=== PATIENT | male | born 1960 | race Caucasian/White ===

== ENCOUNTER 2016-06-06 11:31 | Emergency (ER) | payer OTHER ==
[2016-06-06] MEDS ORDERED: ADENOSINE 3 MG/ML 2 ML VIAL IVP STA (11:54)
[2016-06-06] MEDS ORDERED: SODIUM CHLORIDE 0.9% 1,000 ML IV STA (11:59)
--- NOTE | 2016-06-06 12:04 | ED ---
Arrhythmia/Palpitations HPI - General Chief Complaint: Arrhythmia/Palpitations Stated Complaint: CHEST PAIN, NO Hx Time Seen by Provider: 06/06/16 11:35 Source: patient, RN notes reviewed Mode of arrival: wheelchair Limitations: no limitations - History of Present Illness Initial Comments: This is a 56-year-old male with a benign history other than a prior episode of rapid heart rate who states he is a work just prior to admission he started feeling sudden onset of a racing pounding heart he has some left arm numbness and slight shortness of breath no fevers chills sweats nausea vomiting or other symptoms. He states he had a complete workup with this last time it happened. He was told to try to bear down the next time it happened. He is asymptomatic otherwise he denies any dizziness lightheadedness blurry vision focal weakness shortness of breath nausea vomiting sweats or other symptoms. He is on no medications he does not smoke and doesn't drink alcohol takes no street drugs. No significant family history is his dad had heart lung disease. 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 MD Complaint: rapid heart beat, "heart racing", "skipped beats" - Related Data Home Medications Medication Instructions Recorded Confirmed Omeprazole [PriLOSEC] 20 mg PO DAILY PRN 10/15/13 06/06/16 Allergies Allergy/AdvReac Type Severity Reaction Status Date / Time No Known Allergies Allergy Verified 06/06/16 12:47 Review of Systems ROS Statement: Those systems with pertinent positive or pertinent negative responses have been documented in the HPI. ROS Other: All systems not noted in ROS Statement are negative. Past Medical History Past Medical History: GERD/Reflux History of Any Multi-Drug Resistant Organisms: None Reported Past Surgical History: No Surgical Hx Reported Past Psychological History: No Psychological Hx Reported Smoking Status: Never smoker Past Alcohol Use History: None Reported Past Drug Use History: None Reported General Exam - General Exam Comments Initial Comments: This is a well-developed well-nourished awake alert oriented 3 male Limitations: no limitations General appearance: alert, in no apparent distress Head exam: Present: atraumatic, normocephalic, normal inspection Eye exam: Present: normal appearance, PERRL, EOMI. Absent: scleral icterus, conjunctival injection, periorbital swelling ENT exam: Present: normal exam, mucous membranes moist Neck exam: Present: normal inspection. Absent: tenderness, meningismus, lymphadenopathy Respiratory exam: Present: normal lung sounds bilaterally. Absent: respiratory distress, wheezes, rales, rhonchi, stridor Cardiovascular Exam: Present: normal rhythm, tachycardia. Absent: systolic murmur, diastolic murmur, rubs, gallop, clicks GI/Abdominal exam: Present: soft, normal bowel sounds. Absent: distended, tenderness, guarding, rebound, rigid Extremities exam: Present: normal inspection, full ROM, normal capillary refill. Absent: tenderness, pedal edema, joint swelling, calf tenderness Back exam: Present: normal inspection Neurological exam: Present: alert, oriented X3, CN II-XII intact Psychiatric exam: Present: normal affect, normal mood Skin exam: Present: warm, dry, intact, normal color. Absent: rash Course Vital Signs 06/06/16 06/06/16 11:40 12:34 Temperature 98.2 F 97.8 F Pulse Rate 171 H 105 H Pulse Rate [ 170 H Bilateral Radial] Respiratory 20 16 Rate Blood Pressure 121/82 134/86 O2 Sat by Pulse 99 96 Oximetry - Reevaluation(s) Reevaluation #1: 06/06/16 12:06 Repeat EKG after the event occurred shows a sinus rhythm of 101. Interval 166 QRS duration 76 daily since QTC of 326/422 except for the rate is a normal- appearing EKG this was compared with EKG dated 10/15/13 which shows no change in configuration. Reevaluation #2: 06/06/16 13:38 Reevaluation demonstrates patient having no further symptoms. EKG Findings - EKG Results: EKG: interpreted by [facility] EKG shows: tachycardia (Supraventricular tachycardia with a rate of 161 and QRS of 74 daily since QTC at 272/[address]-T wave changes.) Procedures - Procedures Initial comment: The patient was noted to be in supraventricular tachycardia and did require cardioversion. Patient was positioned an IV was placed after explanation of the procedure the patient was given 6 mg of a adenosine which did convert the patient to a normal sinus rhythm. Patient did tolerate this procedure well. Medical Decision Making - Medical Decision Making Patient remains asymptomatic at did discuss the findings with him. He has no known history diabetes so is blood sugar was elevated this morning he states he has been drinking coffee today with a lot of sugar in it. He has not been having urinary frequency. He will be discharged he'll be discharged home is to follow-up with his doctor this week and did caution him also about increasing his non-caffeinated fluid intake. Return if any problems. He is in satisfactory condition for discharge this time I did recommend outpatient glucose tolerance testing however. - Lab Data Result diagrams: 06/06/16 11:50 06/06/16 11:50 Lab Results 06/06/16 06/06/16 06/06/16 Range/Units 11:50 11:50 11:50 WBC 8.4 (3.8-10.6) k/uL RBC 6.18 H (4.30-5.90) m/uL Hgb 18.7 H (13.0-17.5) gm/dL Hct 54.9 H (39.0-53.0) % MCV 88.8 (80.0-100.0) fL MCH 30.2 (25.0-35.0) pg MCHC 34.1 (31.0-37.0) g/dL RDW 12.6 (11.5-15.5) % Plt Count 327 (150-450) k/uL Neutrophils % 62 % Lymphocytes % 28 % Monocytes % 5 % Eosinophils % 1 % Basophils % 1 % Neutrophils # 5.2 (1.3-7.7) k/uL Lymphocytes # 2.4 (1.0-4.8) k/uL Monocytes # 0.5 (0-1.0) k/uL Eosinophils # 0.1 (0-0.7) k/uL Basophils # 0.1 (0-0.2) k/uL PT (9.0-12.0) sec INR (<1.1) APTT (22.0-30.0) sec Sodium 139 (137-145) mmol/L Potassium 4.2 (3.5-5.1) mmol/L Chloride 99 (98-107) mmol/L Carbon Dioxide 27 (22-30) mmol/L Anion Gap 13 mmol/L BUN 14 (9-20) mg/dL Creatinine 0.89 (0.66-1.25) mg/dL Est GFR (MDRD) Af Amer >60 (>60 ml/min/1.73 sqM) Est GFR (MDRD) Non-Af >60 (>60 ml/min/1.73 sqM) Glucose 315 H (74-99) mg/dL Calcium 10.2 (8.4-10.2) mg/dL Magnesium 1.8 (1.6-2.3) mg/dL Total Bilirubin 1.1 (0.2-1.3) mg/dL AST 26 (17-59) U/L ALT 42 (21-72) U/L Alkaline Phosphatase 100 (38-126) U/L Total Creatine Kinase 162 (55-170) U/L CK-MB (CK-2) 4.2 H* (0.0-2.4) ng/mL CK-MB (CK-2) Rel Index 2.6 Troponin I <0.012 (0.000-0.034) ng/mL Total Protein 8.5 H (6.3-8.2) g/dL Albumin 4.8 (3.5-5.0) g/dL 06/06/16 Range/Units 11:50 WBC (3.8-10.6) k/uL RBC (4.30-5.90) m/uL Hgb (13.0-17.5) gm/dL Hct (39.0-53.0) % MCV (80.0-100.0) fL MCH (25.0-35.0) pg MCHC (31.0-37.0) g/dL RDW (11.5-15.5) % Plt Count (150-450) k/uL Neutrophils % % Lymphocytes % % Monocytes % % Eosinophils % % Basophils % % Neutrophils # (1.3-7.7) k/uL Lymphocytes # (1.0-4.8) k/uL Monocytes # (0-1.0) k/uL Eosinophils # (0-0.7) k/uL Basophils # (0-0.2) k/uL PT 10.2 (9.0-12.0) sec INR 1.0 (<1.1) APTT 24.7 (22.0-30.0) sec Sodium (137-145) mmol/L Potassium (3.5-5.1) mmol/L Chloride (98-107) mmol/L Carbon Dioxide (22-30) mmol/L Anion Gap mmol/L BUN (9-20) mg/dL Creatinine (0.66-1.25) mg/dL Est GFR (MDRD) Af Amer (>60 ml/min/1.73 sqM) Est GFR (MDRD) Non-Af (>60 ml/min/1.73 sqM) Glucose (74-99) mg/dL Calcium (8.4-10.2) mg/dL Magnesium (1.6-2.3) mg/dL Total Bilirubin (0.2-1.3) mg/dL AST (17-59) U/L ALT (21-72) U/L Alkaline Phosphatase (38-126) U/L Total Creatine Kinase (55-170) U/L CK-MB (CK-2) (0.0-2.4) ng/mL CK-MB (CK-2) Rel Index Troponin I (0.000-0.034) ng/mL Total Protein (6.3-8.2) g/dL Albumin (3.5-5.0) g/dL Critical Care Time Critical Care Time: Yes Critical Care Time: 31 minutes of critical care time which includes initial presentation with history physical labs x-rays reevaluation the patient response to therapy and several other review elevation of the patient. Discussed with the patient regarding all the findings documentation the above. Disposition Clinical Impression: Supraventricular tachycardia, Hyperglycemia, Dehydration Disposition: HOME SELF-CARE Condition: Good Instructions: Supraventricular Tachycardia (ED), Hyperglycemia, Non-Diabetic ( ED), Dehydration (ED) Additional Instructions: Avoid caffeine
[2016-06-06 12:10] LABS: Basophils # (A) 0.1 k/uL (0-0.2); Basophils % (A) 1 %; CH 31.4; CHCM 35.5; Eosinophils # (A) 0.1 k/uL (0-0.7); Eosinophils % (A) 1 %; HCT 54.9 % (39.0-53.0); HGB 18.7 gm/dL (13.0-17.5); Luc # (Auto) 0.18; Luc % (Auto) 2; Lymphocytes # (A) 2.4 k/uL (1.0-4.8); Lymphocytes % (A) 28 %; MCH 30.2 pg (25.0-35.0); MCHC 34.1 g/dL (31.0-37.0); MCV 88.8 fL (80.0-100.0); Mean Platelet Volume 6.6; Monocytes # (A) 0.5 k/uL (0-1.0); Monocytes % (A) 5 %; Neutrophils # (A) 5.2 k/uL (1.3-7.7); Neutrophils % (A) 62 %; RBC 6.18 m/uL (4.30-5.90); RDW 12.6 % (11.5-15.5); WBC 8.4 k/uL (3.8-10.6); WBC (Perox) 8.36
[2016-06-06 12:22] LABS: ALT 42 U/L (21-72); AST 26 U/L (17-59); Alkaline Phosphatase 100 U/L (38-126); Anion Gap 13 mmol/L; Blood Urea Nitrogen 14 mg/dL (9-20); Calcium 10.2 mg/dL (8.4-10.2); Carbon Dioxide 27 mmol/L (22-30); Chloride 99 mmol/L (98-107); Glucose 315 mg/dL (74-99); Magnesium 1.8 mg/dL (1.6-2.3); Non-African American GFR(MDRD) >60 (>60 ml/min/1.73 sqM); Potassium 4.2 mmol/L (3.5-5.1); Sodium 139 mmol/L (137-145); Total Bilirubin 1.1 mg/dL (0.2-1.3); Total Protein 8.5 g/dL (6.3-8.2)
[2016-06-06 12:27] LABS: Partial Thromboplastin Time 24.7 sec (22.0-30.0); Prothrombin Time 10.2 sec (9.0-12.0)
--- NOTE | 2016-06-06 12:28 | XR ---
EXAMINATION TYPE: XR chest 2V DATE OF EXAM: 06/06/2016 12:23 PM COMPARISON: Chest x-ray October 15, 2013 HISTORY: Dysrhythmia. TECHNIQUE: Frontal and lateral views of the chest are obtained. FINDINGS: Underlying emphysematous change is not excluded. There is no focal air space opacity, pleu ral effusion, or pneumothorax seen. The cardiac silhouette size is within normal limits. The osseo us structures are intact. IMPRESSION: No acute cardiopulmonary process. No significant change from prior.
[2016-06-06 12:36] LABS: Creatine Kinase 162 U/L (55-170)
[2016-06-06 12:48] LABS: Troponin I <0.012 ng/mL (0.000-0.034)
[2016-06-06 12:57] LABS: Creatine Kinase MB 4.2 ng/mL (0.0-2.4)
[2016-06-06 13:42] VITALS: BP 115/82; PULSE 92; RESP 18; TEMP 97.1
== END 2016-06-06 13:53 | disposition home or self-care (01) ==
LOC: EC 11:31
DX: I47.1 Supraventricular tachycardia (principal); R73.9 Hyperglycemia, unspecified; E86.0 Dehydration
CPT/HCPCS: 99285; 92960; 96360; 96361; 36415; 93005; 80053; 82550; 82553; 83735; 84484; 85025; 85610; 85730; 71020; J0153

== ENCOUNTER → 2016-08-18 | Outpatient (CLI) | payer OTHER ==
[2016-08-18 10:26] LABS: Basophils % (A) 1 %; CH 31.5; Eosinophils # (A) 0.1 k/uL (0-0.7); Eosinophils % (A) 1 %; HDW 2.82; HGB 17.3 gm/dL (13.0-17.5); Luc # (Auto) 0.12; Luc % (Auto) 2; Lymphocytes # (A) 2.1 k/uL (1.0-4.8); Lymphocytes % (A) 29 %; MCH 30.8 pg (25.0-35.0); MCV 85.5 fL (80.0-100.0); Mean Platelet Volume 6.9; Monocytes # (A) 0.4 k/uL (0-1.0); Monocytes % (A) 5 %; Neutrophils # (A) 4.6 k/uL (1.3-7.7); Neutrophils % (A) 63 %; RBC 5.61 m/uL (4.30-5.90); RDW 13.2 % (11.5-15.5); WBC 7.4 k/uL (3.8-10.6); WBC (Perox) 6.76
[2016-08-18 10:53] LABS: Hemoglobin A1C 8.6 % (4.2-6.1)
[2016-08-18 11:34] LABS: ALT 46 U/L (21-72); AST 23 U/L (17-59); Alkaline Phosphatase 69 U/L (38-126); Anion Gap 12 mmol/L; Blood Urea Nitrogen 17 mg/dL (9-20); Calcium 9.8 mg/dL (8.4-10.2); Carbon Dioxide 28 mmol/L (22-30); Chloride 100 mmol/L (98-107); Cholesterol 201 mg/dL (<200); Glucose 196 mg/dL (74-99); HDL Cholesterol 55 mg/dL (40-60); Non-African American GFR(MDRD) >60 (>60 ml/min/1.73 sqM); Potassium 3.9 mmol/L (3.5-5.1); Sodium 140 mmol/L (137-145); Total Bilirubin 1.2 mg/dL (0.2-1.3); Total Protein 7.2 g/dL (6.3-8.2); Triglycerides 76 mg/dL (<150)
[2016-08-18 13:06] LABS: Hepatitis C Virus IgG Ab Negative (Negative); Hepatitis C Virus IgG Index 0.03
[2016-08-18 16:48] LABS: Urine Creatinine 236.1 mg/dL
== END | disposition home or self-care (01) ==
LOC: LABWHC1 09:48
PROVIDERS: ATTEND Family Medicine
DX: E11.65 Type 2 diabetes mellitus with hyperglycemia (principal); Z13.9 Encounter for screening, unspecified
CPT/HCPCS: 86803; 80061; 80053; 83036; 84443; 85025; 82043; 82570; 36415; G0103

== ENCOUNTER → 2019-03-14 | Outpatient (CLI) | payer BC ==
--- NOTE | 2019-03-14 11:31 | NM ---
EXAMINATION TYPE: NM stress cardiolite complete DATE OF EXAM: 03/14/2019 COMPARISON: NONE HISTORY: Atypical chest pain TECHNIQUE: After the intravenous administration of 9.85 mCi Tc 99m Sestamibi - Rest images obtained 45 minutes post injection. The patient exercised using a JOSE RAUL protocol and 1 minute prior to peak exercise was injected with 26.5 mCi Tc 99m Sestamibi - Stress images obtained 15 minutes post injecti on. FINDINGS: Targeted heart rate was achieved during performance of the study. Review of stress and rest SPECT cornelia ges demonstrates no reversible perfusion abnormality. Fixed defect in the inferior septal wall is at tributable to attenuation artifact from adjacent bowel on raw data images Gated analysis shows normal wall motion with an estimated left ventricular ejection fraction of 65 %. TID is calculated within n ormal limits at 0.84. IMPRESSION: No scintigraphic evidence for reversible ischemia
--- NOTE | 2019-03-14 11:52 | P.STRESS ---
- Stress Test Note Stress Test Results/Findings: Exam Performed: NM stress cardiolite complete Exam Date: 03/14/19 Reason for Exam: CP Height: 6 ft Weight: 174 kg Protocol: JOSE RAUL Stage: 3 Duration of Exercise: 7:15 Resting Heart Rate: 72 Resting Blood Pressure: 132/85 Maximum Achieved Heart Rate: 141 Maximum Achieved Blood Pressure: 218/115 85% PMHR: 138 100% PMHR: 162 METS: 87 Technologist Comment: Stress Test Results/Findings: This is a 58-year-old gentleman with history of hypertension, diabetes, hypercholesterolemia, family history, being evaluated for symptoms of chest pain or shortness of breath and also palpitations. Stress data: Baseline EKG showed sinus rhythm with normal SC interval and QRS duration. Blood pressure at rest is 132/85 with pulse rate of 72. Patient walked on the Jose Raul protocol for 7 minutes and 15 seconds achieving a maximal heart rate of 141 with a blood pressure of 10. Overall 116. EKGs taken during and after exercise did not reveal any significant changes from the baseline. Final impression: #1. Negative stress test #2. Occasional PVCs #3. Report on the nuclear images to be given by the radiologist
--- NOTE | 2019-03-15 12:59 | EST ---
Stress Test Results/Findings: Exam Performed: NM stress cardiolite complete Exam Date: 03/14/19 Reason for Exam: CP Height: 6 ft Weight: 174 kg Protocol: JOSE RAUL Stage: 3 Duration of Exercise: 7:15 Resting Heart Rate: 72 Resting Blood Pressure: 132/85 Maximum Achieved Heart Rate: 141 Maximum Achieved Blood Pressure: 218/115 85% PMHR: 138 100% PMHR: 162 METS: 87 Technologist Comment: Stress Test Results/Findings: This is a 58-year-old gentleman with history of hypertension, diabetes, hypercholesterolemia, family history, being evaluated for symptoms of chest pain or shortness of breath and also palpitations. Stress data: Baseline EKG showed sinus rhythm with normal CO interval and QRS duration. Blood pressure at rest is 132/85 with pulse rate of 72. Patient walked on the Jose Raul protocol for 7 minutes and 15 seconds achieving a maximal heart rate of 141 with a blood pressure of 10. Overall 116. EKGs taken during and after exercise did not reveal any significant changes from the baseline. Final impression: #1. Negative stress test #2. Occasional PVCs #3. Report on the nuclear images to be given by the radiologist CALIXTO
== END | disposition home or self-care (01) ==
LOC: RADNMMAIN 08:15
PROVIDERS: ATTEND Family Medicine
DX: R07.89 Other chest pain (principal)
CPT/HCPCS: 93017; 78452; A9500

== ENCOUNTER 2020-01-07 14:43 | Emergency (ER) | payer BC, OTHER ==
[2020-01-07 14:52] VITALS: BP 173/99; PULSE 75; RESP 16; TEMP 98.8
--- NOTE | 2020-01-07 15:51 | ED ---
Upper Extremity HPI - General Chief Complaint: Extremity Injury, Upper Stated Complaint: Rt thumb injury Time Seen by Provider: 01/07/20 14:54 Source: patient Mode of arrival: ambulatory Limitations: no limitations - History of Present Illness Initial Comments: 59-year-old male patient presents to the emergency department today for evaluation of right thumb injury. Patient states he is at work one [employer] when he tried to catch a he jammed his thumb on the table. Patient states he has significant pain with any type of movement to the thumb. States the pain is radiating down into his wrist. Denies any numbness or tingling. Denies previous injury to this extremity. Denies any other injuries. Has not taken any pain medication. Patient denies any headache, neck pain, back pain, chest pain, shortness of breath, dizziness, weakness, abdominal pain, nausea, vomiting, or difficulties with bowel movements or urination. - Related Data Home Medications Medication Instructions Recorded Confirmed Omeprazole [PriLOSEC] 20 mg PO DAILY PRN 10/15/13 06/06/16 Allergies Allergy/AdvReac Type Severity Reaction Status Date / Time No Known Allergies Allergy Verified 01/07/20 14:52 Review of Systems ROS Statement: Those systems with pertinent positive or pertinent negative responses have been documented in the HPI. ROS Other: All systems not noted in ROS Statement are negative. Past Medical History Past Medical History: GERD/Reflux History of Any Multi-Drug Resistant Organisms: None Reported Past Surgical History: No Surgical Hx Reported Past Psychological History: No Psychological Hx Reported Smoking Status: Never smoker Past Alcohol Use History: None Reported Past Drug Use History: None Reported General Exam Limitations: no limitations General appearance: alert, in no apparent distress, other (This is a well- developed, well-nourished adult male patient in no acute distress. Vital signs upon presentation are temperature 98.8F, pulse 75, respirations 16, blood pressure 173/99, pulse ox 98% on room air.) Respiratory exam: Present: normal lung sounds bilaterally. Absent: respiratory distress, wheezes, rales, rhonchi, stridor Cardiovascular Exam: Present: regular rate, normal rhythm, normal heart sounds. Absent: systolic murmur, diastolic murmur, rubs, gallop, clicks Extremities exam: Present: normal inspection, full ROM, normal capillary refill, other (tenderness over the base of the thumb. Skin is pink, warm, dry. Cap refills less than 3 seconds. Radial pulses 2+ and equal bilaterally. There is no anatomical snuffbox tenderness.). Absent: pedal edema, joint swelling, calf tenderness Neurological exam: Present: alert, oriented X3, CN II-XII intact Psychiatric exam: Present: normal affect, normal mood Skin exam: Present: warm, dry, intact, normal color. Absent: rash Course Vital Signs 01/07/20 14:49 Temperature 98.8 F Pulse Rate 75 Respiratory 16 Rate Blood Pressure 173/99 O2 Sat by Pulse 98 Oximetry Medical Decision Making - Medical Decision Making 59-year-old male patient presented to the emergency department today for evaluation of injury to the thumb on the right hand. Physical examination did reveal soft tissue swelling noted over the base of the right thumb. Neurovascular status was intact. X-ray showed significant degenerative changes to the hand and wrist but no acute fractures. Patient was placed in an Carlos wrap. He is educated regarding rest, ice, elevation. He is instructed to follow-up with his primary care physician for recheck in 1-2 days. Return parameters were discussed in detail. He verbalizes understanding and agrees with this plan. - Radiology Data Radiology results: report reviewed, image reviewed X-ray of the right wrist and right hand are obtained. Report was reviewed in its intake today. Impression by Dr. Murphy shows moderate degenerative change the basal joint of the thumb and the Triscaphe joint. Severe degenerative change at the mid carpal compartment centered at the take joint. Type II and a bone with evidence of hematoma lunate impingement. At least mild degenerative change at the first MCP and IP joints. There is 2 mm chronically fragmented spur are loose body within the dorsal aspect of the first MCP joint. Additional moderate degenerative change of the second MCP joint. Disposition Clinical Impression: Thumb sprain Disposition: HOME SELF-CARE Condition: Good Instructions (If sedation given, give patient instructions): Finger Sprain (ED) Additional Instructions: Rest, ice, elevate the right hand. Use carlos wrap for comfort and support. Use tylenol and motrin for pain control. Follow up with orthopedics for further evaluation as symptoms do not improve in the next 1-2 days. Return to the emergency department for new, worsening, or concerning symptoms. Is patient prescribed a controlled substance at d/c from ED?: No Referrals: Ranjan Teran MD [Primary Care Provider] - 1-2 days Jama Coe MD [STAFF PHYSICIAN] - 1-2 days Time of Disposition: 16:17
--- NOTE | 2020-01-07 16:08 | XR ---
EXAMINATION TYPE: XR wrist complete 4 views RT, XR hand complete 3 views RT DATE OF EXAM: 01/07/2020 COMPARISON: NONE HISTORY: 59-year-old male with right thumb pain after injury FINDINGS: Wrist: Neutral ulnar variance. Radiocarpal and distal radioulnar joints appear intact. Moderate degenerative change at the first MCP and triscaphe joints with joint space narrowing, marginal spurring, and some subchondral signal change. Of note, there is also severe degenerative change at the lunocapitate sravan nt and a type II hamate with joint space narrowing and sclerosis with the lunate. No acute fracture o r dislocation seen. Hand: Mild degenerative change at the first MCP and IP joints. Corticated 2 mm bone density along the dorsa l aspect of the first MCP joint suggesting a fragmented spur or loose body. Moderate degenerative joint space narrowing with subchondral cystic change at the second MCP joint. N o acute fracture or dislocation seen. IMPRESSION: Wrist: 1. Moderate degenerative change at the basal joint of the thumb and the triscaphe joint. 2. Severe degenerative change at the midcarpal compartment centered at the lunocapitate joint. 3. 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 Hand: 4. At least mild degenerative change at the first MCP and IP joints. There is a 2 mm chronically frag mented spur or loose body within the dorsal aspect of the first MCP joint. 5. Additional moderate degenerative change of the second MCP joint.
== END 2020-01-07 16:57 | disposition home or self-care (01) ==
LOC: EC 14:43
DX: S63.601A Unspecified sprain of right thumb, initial encounter (principal); K21.9 Gastro-esophageal reflux disease without esophagitis; M19.031 Primary osteoarthritis, right wrist; M19.041 Primary osteoarthritis, right hand; W23.1XXA Caught, crushed, jammed, or pinched between stationary objects, initial encounter; Y92.69 Other specified industrial and construction area as the place of occurrence of the external cause; Y99.0 Civilian activity done for income or pay
CPT/HCPCS: 99283

== ENCOUNTER 2020-08-04 11:25 | Emergency (ER) | payer BC ==
[2020-08-04 11:38] LABS: Glucose,Whole Blood 255 mg/dL (75-99)
[2020-08-04] MEDS ORDERED: SODIUM CHLORIDE 0.9% 1,000 ML IV ONE (12:01)
--- NOTE | 2020-08-04 12:05 | ED ---
General Adult HPI - General Chief complaint: Recheck/Abnormal Lab/Rx Stated complaint: diabetic med reaction Time Seen by Provider: 08/04/20 11:35 Source: patient, RN notes reviewed Mode of arrival: ambulatory Limitations: no limitations - History of Present Illness Initial comments: 60-year-old male presents emergency Department with chief complaint of palpitations. Patient states he's been having issues with his blood sugar in which he has been placed on 2 new medications. Patient states he occasionally experience of palpitations with no chest pain he states that he'll just suddenly feels some heart racing that it goes away. Denies feeling short of breath no headache no dizziness no focal weakness no abdominal complaints. He does have urinary frequency but states that he always has this once blood sugar is elevated. Patient also states she was recently placed on her blood pressure medication which she has not had that filled. Patient denies fevers chills no cough or URI symptoms. - Related Data Home Medications Medication Instructions Recorded Confirmed Empagliflozin [Jardiance] 25 mg PO DAILY 08/04/20 08/04/20 Semaglutide [Rybelsus] 14 mg PO DAILY 08/04/20 08/04/20 Allergies Allergy/AdvReac Type Severity Reaction Status Date / Time No Known Allergies Allergy Verified 08/04/20 13:05 Review of Systems ROS Statement: Those systems with pertinent positive or pertinent negative responses have been documented in the HPI. ROS Other: All systems not noted in ROS Statement are negative. Past Medical History Past Medical History: Diabetes Mellitus, GERD/Reflux History of Any Multi-Drug Resistant Organisms: None Reported Past Surgical History: No Surgical Hx Reported Past Psychological History: No Psychological Hx Reported Smoking Status: Never smoker Past Alcohol Use History: None Reported Past Drug Use History: None Reported General Exam Limitations: no limitations General appearance: alert, in no apparent distress Head exam: Present: atraumatic, normocephalic, normal inspection Neck exam: Present: normal inspection, full ROM. Absent: tenderness, meningismus, lymphadenopathy Respiratory exam: Present: normal lung sounds bilaterally. Absent: respiratory distress, wheezes, rales, rhonchi, stridor Cardiovascular Exam: Present: regular rate, normal rhythm, normal heart sounds. Absent: systolic murmur, diastolic murmur, rubs, gallop, clicks GI/Abdominal exam: Present: soft, normal bowel sounds. Absent: distended, tenderness, guarding, rebound, rigid Extremities exam: Absent: pedal edema Neurological exam: Present: alert, CN II-XII intact Skin exam: Present: warm, dry, intact, normal color. Absent: rash Course Vital Signs 08/04/20 11:31 Temperature 97.9 F Pulse Rate 76 Respiratory 16 Rate Blood Pressure 170/102 O2 Sat by Pulse 98 Oximetry EKG Findings - EKG Comments: EKG Findings:: EKG performed at 12:17 sinus rhythm rate of 68 pr 160 qrs 80 qt/qtc 404/404 Medical Decision Making - Medical Decision Making 6-year-old presented for palpitations. Patient is asymptomatic at this time. Patient in mild hyperglycemia he was well hydrated, is on medications. Patient has mild hypertension and which she has prescription waiting for him at the pharmacy. Patient discharged with close follow-up return parameters were disc ussed. Patient has no shortness of breath. - Lab Data Result diagrams: 08/04/20 12:10 08/04/20 12:10 Lab Results 08/04/20 08/04/20 08/04/20 Range/Units 11:33 12:10 12:10 WBC 5.4 (3.8-10.6) k/uL RBC 5.61 (4.30-5.90) m/uL Hgb 17.4 (13.0-17.5) gm/dL Hct 49.9 (39.0-53.0) % MCV 88.9 (80.0-100.0) fL MCH 31.1 (25.0-35.0) pg MCHC 34.9 (31.0-37.0) g/dL RDW 12.2 (11.5-15.5) % Plt Count 276 (150-450) k/uL MPV 6.9 Neutrophils % 65 % Lymphocytes % 26 % Monocytes % 4 % Eosinophils % 3 % Basophils % 1 % Neutrophils # 3.5 (1.3-7.7) k/uL Lymphocytes # 1.4 (1.0-4.8) k/uL Monocytes # 0.2 (0-1.0) k/uL Eosinophils # 0.2 (0-0.7) k/uL Basophils # 0.0 (0-0.2) k/uL PT 10.1 (9.0-12.0) sec INR 0.9 (<1.2) APTT 22.2 (22.0-30.0) sec Sodium (137-145) mmol/L Potassium (3.5-5.1) mmol/L Chloride (98-107) mmol/L Carbon Dioxide (22-30) mmol/L Anion Gap mmol/L BUN (9-20) mg/dL Creatinine (0.66-1.25) mg/dL Est GFR (CKD-EPI)AfAm (>60 ml/min/1.73 sqM) Est GFR (CKD-EPI)NonAf (>60 ml/min/1.73 sqM) Glucose (74-99) mg/dL POC Glucose (mg/dL) 255 H (75-99) mg/dL POC Glu Auto Mechanics Teacher ID Maday Cates Calcium (8.4-10.2) mg/dL Magnesium (1.6-2.3) mg/dL Total Bilirubin (0.2-1.3) mg/dL AST (17-59) U/L ALT (4-49) U/L Alkaline Phosphatase (38-126) U/L Troponin I (0.000-0.034) ng/mL Total Protein (6.3-8.2) g/dL Albumin (3.5-5.0) g/dL 08/04/20 08/04/20 Range/Units 12:10 12:10 WBC (3.8-10.6) k/uL RBC (4.30-5.90) m/uL Hgb (13.0-17.5) gm/dL Hct (39.0-53.0) % MCV (80.0-100.0) fL MCH (25.0-35.0) pg MCHC (31.0-37.0) g/dL RDW (11.5-15.5) % Plt Count (150-450) k/uL MPV Neutrophils % % Lymphocytes % % Monocytes % % Eosinophils % % Basophils % % Neutrophils # (1.3-7.7) k/uL Lymphocytes # (1.0-4.8) k/uL Monocytes # (0-1.0) k/uL Eosinophils # (0-0.7) k/uL Basophils # (0-0.2) k/uL PT (9.0-12.0) sec INR (<1.2) APTT (22.0-30.0) sec Sodium 140 (137-145) mmol/L Potassium 4.1 (3.5-5.1) mmol/L Chloride 107 (98-107) mmol/L Carbon Dioxide 25 (22-30) mmol/L Anion Gap 8 mmol/L BUN 14 (9-20) mg/dL Creatinine 0.57 L (0.66-1.25) mg/dL Est GFR (CKD-EPI)AfAm >90 (>60 ml/min/1.73 sqM) Est GFR (CKD-EPI)NonAf >90 (>60 ml/min/1.73 sqM) Glucose 292 H (74-99) mg/dL POC Glucose (mg/dL) (75-99) mg/dL POC Glu Auto Mechanics Teacher ID Calcium 9.4 (8.4-10.2) mg/dL Magnesium 1.9 (1.6-2.3) mg/dL Total Bilirubin 0.7 (0.2-1.3) mg/dL AST 25 (17-59) U/L ALT 28 (4-49) U/L Alkaline Phosphatase 84 (38-126) U/L Troponin I <0.012 (0.000-0.034) ng/mL Total Protein 6.8 (6.3-8.2) g/dL Albumin 4.2 (3.5-5.0) g/dL Disposition Clinical Impression: Hyperglycemia, Palpitations Disposition: HOME SELF-CARE Condition: Stable Instructions (If sedation given, give patient instructions): Heart Palpitations (ED) Additional Instructions: Please return to the Emergency Department if symptoms worsen or any other concerns. Is patient prescribed a controlled substance at d/c from ED?: No Referrals: Ranjan Teran MD [Primary Care Provider] - 1-2 days Time of Disposition: 13:20
[2020-08-04 12:18] LABS: Basophils % (A) 1 %; Eosinophils # (A) 0.2 k/uL (0-0.7); Eosinophils % (A) 3 %; HCT 49.9 % (39.0-53.0); HGB 17.4 gm/dL (13.0-17.5); Lymphocytes # (A) 1.4 k/uL (1.0-4.8); Lymphocytes % (A) 26 %; MCH 31.1 pg (25.0-35.0); MCHC 34.9 g/dL (31.0-37.0); MCV 88.9 fL (80.0-100.0); Mean Platelet Volume 6.9; Monocytes # (A) 0.2 k/uL (0-1.0); Monocytes % (A) 4 %; Neutrophils # (A) 3.5 k/uL (1.3-7.7); Neutrophils % (A) 65 %; Platelet Count 276 k/uL (150-450); RBC 5.61 m/uL (4.30-5.90); RDW 12.2 % (11.5-15.5); WBC 5.4 k/uL (3.8-10.6)
[2020-08-04 12:29] LABS: INR 0.9 (<1.2); Partial Thromboplastin Time 22.2 sec (22.0-30.0); Prothrombin Time 10.1 sec (9.0-12.0)
[2020-08-04 12:31] LABS: ALT 28 U/L (4-49); AST 25 U/L (17-59); African American GFR (CKD) >90 (>60 ml/min/1.73 sqM); Albumin 4.2 g/dL (3.5-5.0); Alkaline Phosphatase 84 U/L (38-126); Anion Gap 8 mmol/L; Blood Urea Nitrogen 14 mg/dL (9-20); Calcium 9.4 mg/dL (8.4-10.2); Carbon Dioxide 25 mmol/L (22-30); Chloride 107 mmol/L (98-107); Glucose 292 mg/dL (74-99); Magnesium 1.9 mg/dL (1.6-2.3); Non-African American GFR(CKD) >90 (>60 ml/min/1.73 sqM); Potassium 4.1 mmol/L (3.5-5.1); Sodium 140 mmol/L (137-145); Total Bilirubin 0.7 mg/dL (0.2-1.3); Total Protein 6.8 g/dL (6.3-8.2)
--- NOTE | 2020-08-04 13:12 | XR ---
EXAMINATION TYPE: XR chest 2V DATE OF EXAM: 08/04/2020 COMPARISON: 06/06/2016 HISTORY: Dysrhythmia TECHNIQUE: Frontal and lateral views of the chest are obtained. FINDINGS: There is no focal air space opacity, pleural effusion, or pneumothorax seen. The cardiac silhouette size is within normal limits. The osseous structures are intact. IMPRESSION: No acute cardiopulmonary process.
[2020-08-04 13:46] VITALS: PULSE 61
[2020-08-04 13:48] VITALS: BP 126/85; RESP 16; TEMP 98.1
== END 2020-08-04 13:35 | disposition home or self-care (01) ==
LOC: EC 11:25
DX: E11.65 Type 2 diabetes mellitus with hyperglycemia (principal); R00.2 Palpitations; I10 Essential (primary) hypertension; Z79.4 Long term (current) use of insulin
CPT/HCPCS: 36415; 71046; 80053; 83735; 84484; 85025; 85610; 85730; 93005; 96360; 99285

== ENCOUNTER → 2020-08-13 | Outpatient (CLI) | payer BC ==
--- NOTE | 2020-08-17 05:00 | ECHOF ---
Referral Reason:R00.2 palpitations MEASUREMENTS -------- HEIGHT: 182.9 cm WEIGHT: 80.7 kg BP: 149/90 RVIDd: 2.4 cm (< 3.3) IVSd: 1.1 cm (0.6 - 1.1) LVIDd: 4.0 cm (3.9 - 5.3) LVPWd: 1.0 cm (0.6 - 1.1) IVSs: 1.7 cm LVIDs: 2.5 cm LVPWs: 1.3 cm LA Diam: 2.8 cm (2.7 - 3.8) LAESV Index (A-L): 20.03 ml/m Ao Diam: 3.1 cm (2.0 - 3.7) AV Cusp: 2.3 cm (1.5 - 2.6) MV EF SLOPE: 139 mm/s (70 - 150) EPSS: 1.8 cm MV E Franck: 0.90 m/s MV DecT: 209 ms MV A Franck: 1.04 m/s MV E/A Ratio: 0.86 RAP: 5.00 mmHg RVSP: 27.49 mmHg FINDINGS -------- Sinus rhythm. This was a technically adequate study. The left ventricular size is normal. There is borderline concentric left ventricular hypertrophy. Overall left ventricular systolic function is normal with, an EF between 55 - 60 %. The diastolic filling pattern is normal for the age of the patient 9.96. The right ventricle is normal in size. Normal LA size by volume 22+/-6 ml/m2. The right atrial size is normal. Interatrial and interventricular septum intact. The aortic valve is trileaflet, and appears structurally normal. No aortic stenosis or regurgitation. The mitral valve is normal. There is trace to mild mitral regurgitation. The tricuspid valve appears structurally normal. Mild tricuspid regurgitation present. Right vent ricular systolic pressure is normal at < 35 mmHg. The pulmonic valve was not well visualized. There is no pulmonic regurgitation present. The aortic root size is normal. Normal inferior vena cava with normal inspiratory collapse consistent with estimated right atrial pre ssure of 5 mmHg. There is no pericardial effusion. CONCLUSIONS -------- 1. There is borderline concentric left ventricular hypertrophy. 2. Overall left ventricular systolic function is normal with, an EF between 55 - 60 %. 3. Normal LA size by volume 22+/-6 ml/m2. 4. The aortic valve is trileaflet, and appears structurally normal. No aortic stenosis or regurgitati on. 5. There is trace to mild mitral regurgitation. 6. Mild tricuspid regurgitation present. 7. There is no pericardial effusion. BLOOD TESTER FOWL: Kimmy Albright RDCS
== END | disposition home or self-care (01) ==
LOC: RADECHMAIN 14:46
PROVIDERS: ATTEND Family Medicine
DX: I08.1 Rheumatic disorders of both mitral and tricuspid valves (principal)
CPT/HCPCS: 93306

== ENCOUNTER → 2020-09-24 | Outpatient (CLI) | payer OTHER ==
--- NOTE | 2020-09-24 11:24 | XR ---
EXAMINATION TYPE: XR knee complete RT DATE OF EXAM: 09/24/2020 CLINICAL HISTORY: Trip and fall injury with pain. TECHNIQUE: Three views of the right knee are obtained. COMPARISON: None. FINDINGS: There is no acute fracture/dislocation evident in right knee. Mild to moderate tricompartm ent joint space loss. Increased density suprapatellar bursa consistent with small joint effusion. IMPRESSION: There is no acute fracture or dislocation in the right knee.
== END | disposition home or self-care (01) ==
LOC: RADXRMAIN 11:06
PROVIDERS: ATTEND Emergency Medicine
DX: M25.561 Pain in right knee (principal); W19.XXXA Unspecified fall, initial encounter

== ENCOUNTER 2022-11-12 16:43 | Observation (INO) | payer BC, OTHER ==
[2022-11-12] MEDS ORDERED: KETOROLAC 15 MG/ML 1 ML VIAL IM STA (17:06)
[2022-11-12] MEDS ORDERED: LIDOCAINE 5% PATCH TOPICAL STA (17:07)
--- NOTE | 2022-11-12 17:16 | ED ---
Back Pain HPI - General Source: patient Limitations: no limitations <Jyoti Mcdaniel - Last Filed: 11/12/22 17:49> - General Source: patient, RN notes reviewed Limitations: no limitations <Damion Mckenna - Last Filed: 11/12/22 19:47> - General Chief Complaint: Back Pain/Injury Stated Complaint: L shoulder injury Time Seen by Provider: 11/12/22 16:59 - History of Present Illness Initial Comments: Patient is a pleasant 60-year-old male presenting to the emergency department back pain. Onset of symptoms was 3 or 4 days ago while at work. Patient was lifting a 23 pound rotor. Patient states he has had intermittent back discomfort since that time. Discomfort is somewhat positional. Patient states it does improve with rest. Patient states when discomfort gets bad he does have some discomfort in his chest as well. Discomfort feels like a dull/ache. Patient has had some nausea and has vomited. Currently no chest discomfort. Discomfort in the back is currently 7/10. (Damion Mckenna) - Related Data Home Medications Medication Instructions Recorded Confirmed Empagliflozin [Jardiance] 25 mg PO DAILY 08/04/20 08/04/20 Semaglutide [Rybelsus] 14 mg PO DAILY 08/04/20 08/04/20 Previous Rx's Medication Instructions Recorded Lidocaine 5% Patch [Lidoderm 5% 1 patch TOPICAL DAILY PRN #7 patch 11/12/22 Patch] Allergies Allergy/AdvReac Type Severity Reaction Status Date / Time No Known Allergies Allergy Verified 11/12/22 19:46 Review of Systems ROS Other: All systems not noted in ROS Statement are negative. <Jyoti Mcdaniel - Last Filed: 11/12/22 17:49> ROS Other: All systems not noted in ROS Statement are negative. Constitutional: Denies: fever Eyes: Denies: eye pain ENT: Denies: ear pain Respiratory: Denies: dyspnea Cardiovascular: Reports: as per HPI, chest pain Musculoskeletal: Reports: as per HPI, back pain <Damion Mckenna - Last Filed: 11/12/22 19:47> ROS Statement: Those systems with pertinent positive or pertinent negative responses have been documented in the HPI. Past Medical History Past Medical History: Diabetes Mellitus, GERD/Reflux, Hypertension History of Any Multi-Drug Resistant Organisms: None Reported Past Surgical History: No Surgical Hx Reported Past Psychological History: No Psychological Hx Reported Smoking Status: Never smoker Past Alcohol Use History: None Reported Past Drug Use History: None Reported <Jyoti Mcdaniel - Last Filed: 11/12/22 17:49> General Exam Limitations: no limitations <Jyoti Mcdaniel - Last Filed: 11/12/22 17:49> Limitations: no limitations General appearance: alert, in no apparent distress Head exam: Present: normocephalic Eye exam: Present: normal appearance Neck exam: Present: normal inspection Respiratory exam: Present: normal lung sounds bilaterally. Absent: chest wall tenderness Cardiovascular Exam: Present: regular rate, normal rhythm Expanded Peripheral pulses: 2+: Radial (R), Radial (L), Dorsalis Pedis (R), Dorsalis Pedis (L) GI/Abdominal exam: Present: soft. Absent: tenderness Extremities exam: Present: normal inspection. Absent: pedal edema, calf tenderness Neurological exam: Present: alert Psychiatric exam: Present: normal affect, normal mood Skin exam: Present: normal color <Damion Mckenna - Last Filed: 11/12/22 19:47> Course <Damion Mckenna - Last Filed: 11/12/22 19:47> Vital Signs 11/12/22 11/12/22 16:46 18:20 Temperature 98 F Pulse Rate 100 95 Respiratory 20 18 Rate Blood Pressure 142/66 135/117 O2 Sat by Pulse 96 98 Oximetry - Reevaluation(s) Reevaluation #1: 11/12/22 17:53 Case is discussed with Dr. Schmidt and he is reviewing EKG 11/12/22 18:27 Case was discussed with Dr. Schmidt several times. He does recommend aspirin, nitroglycerin, and Lipitor. No heparin at this time. He does want computed tomography scan. (Damion Mckenna) Medical Decision Making - Lab Data Result diagrams: 11/12/22 17:56 11/12/22 17:56 <Damion Mckenna - Last Filed: 11/12/22 19:47> - Medical Decision Making Was pt. sent in by a medical professional or institution (, PA, SUGAR REFINERY SUPERVISOR, urgent care, hospital, or skilled nursing...) When possible be specific @ -No Did you speak to anyone other than the patient for history (EMS, parent, family, police, friend...)? What history was obtained from this source @ -No Did you review nursing and triage notes (agree or disagree)? Why? @ -I reviewed and agree with nursing and triage notes Were old charts reviewed (outside hosp., previous admission, EMS record, old EKG, old radiological studies, urgent care reports/EKG's, skilled nursing records)? Report findings @ -Previous EKGs were reviewed and were not similar to EKG done today. Differential Diagnosis (chest pain, altered mental status, abdominal pain women, abdominal pain men, vaginal bleeding, weakness, fever, dyspnea, syncope, headache, dizziness, GI bleed, back pain, seizure, CVA, palpatations, mental he alth, musculoskeletal)? @ -Differential Chest Pain: Stable Angina, Unstable Angina, STEMI, NSTEMI Aortic Dissection, Pneumothorax, Musculoskeletal, Esophageal Spasm GERD, Cholecystitis, Pancreatitis, Zoster, this is not meant to be an all-inclusive list. EKG interpreted by me (3pts min.). @ -As above X-rays interpreted by me (1pt min.). @ -Chest x-ray shows no acute process CT interpreted by me (1pt min.). @ -Report reviewed U/S interpreted by me (1pt. min.). @ -None done What testing was considered but not performed or refused? (CT, X-rays, U/S, labs)? Why? @ -None What meds were considered but not given or refused? Why? @ -None Did you discuss the management of the patient with other professionals (prof alka i.e. , PA, SUGAR REFINERY SUPERVISOR, lab, RT, psych nurse, clinical social worker, transport tech, teacher, first officer, outpatient case manager)? Give summary @ -Case discussed with cardiology, Dr. Gates and several times, see above. Case also discussed with sound physician, Dr. Sprague who will admit covering Dr. Carver Was smoking cessation discussed for >3mins.? @ -No Was critical care preformed (if so, how long)? @ -33 minutes critical care time Were there social determinants of health that impacted care today? How? (Homelessness, low income, unemployed, alcoholism, drug addiction, transportation, low edu. Level, literacy, decrease access to med. care, half-way, rehab)? @ -No Was there de-escalation of care discussed even if they declined (Discuss DNR or withdrawal of care, Hospice)? DNR status @ -No What co-morbidities impacted this encounter? (DM, HTN, Smoking, COPD, CAD, Cancer, CVA, ARF, Chemo, Hep., AIDS, mental health diagnosis, sleep apnea, morbid obesity)? @ -None Was patient admitted / discharged? Hospital course, mention meds given and route, prescriptions, significant lab abnormalities, going to OR and other pertinent info. @ -Patient reevaluated multiple times. Discomfort has improved to 3/10 and just is in the back. Patient will be admitted for repeat troponins and cardiac evaluation. Patient may need heart catheterization at some point to be d etermined by cardiology. Patient is updated on results and plan and concerns. Admission orders written. Undiagnosed new problem with uncertain prognosis? @ -No Drug Therapy requiring intensive monitoring for toxicity (Heparin, Nitro, Insulin, Cardizem)? @ -No Were any procedures done? @ -No Diagnosis/symptom? @ -Angina, EKG changes Acute, or Chronic, or Acute on Chronic? @ -Acute Uncomplicated (without systemic symptoms) or Complicated (systemic symptoms)? @ -default Side effects of treatment? @ -No Exacerbation, Progression, or Severe Exacerbation? @ -No Poses a threat to life or bodily function? How? (Chest pain, [place], [place], pneumonia, PE, COPD, DKA, ARF, appy, cholecystitis, CVA, Diverticulitis, Homicidal, Suicidal, threat to staff... and all critical care pts) @ -Threat to cardiac function (Damion Mckenna) - Lab Data Lab Results 11/12/22 11/12/22 11/12/22 Range/Units 17:56 17:56 17:56 WBC 8.5 (3.8-10.6) k/uL RBC 5.76 (4.30-5.90) m/uL Hgb 17.9 H (13.0-17.5) gm/dL Hct 51.8 (39.0-53.0) % MCV 89.8 (80.0-100.0) fL MCH 31.0 (25.0-35.0) pg MCHC 34.5 (31.0-37.0) g/dL RDW 12.3 (11.5-15.5) % Plt Count 447 (150-450) k/uL MPV 7.7 Neutrophils % 59 % Lymphocytes % 31 % Monocytes % 5 % Eosinophils % 3 % Basophils % 0 % Neutrophils # 5.1 (1.3-7.7) k/uL Lymphocytes # 2.6 (1.0-4.8) k/uL Monocytes # 0.5 (0-1.0) k/uL Eosinophils # 0.2 (0-0.7) k/uL Basophils # 0.0 (0-0.2) k/uL PT 9.9 (9.0-12.0) sec INR 0.9 (<1.2) APTT 23.1 (22.0-30.0) sec D-Dimer 0.35 (<0.60) mg/L FEU Sodium 136 L (137-145) mmol/L Potassium 4.5 (3.5-5.1) mmol/L Chloride 97 L (98-107) mmol/L Carbon Dioxide 28 (22-30) mmol/L Anion Gap 11 mmol/L BUN 24 H (9-20) mg/dL Creatinine 0.75 (0.66-1.25) mg/dL Est GFR (CKD-EPI)AfAm >90 (>60 ml/min/1.73 sqM) Est GFR (CKD-EPI)NonAf >90 (>60 ml/min/1.73 sqM) Glucose 333 H (74-99) mg/dL Calcium 9.9 (8.4-10.2) mg/dL Magnesium 1.3 L (1.6-2.3) mg/dL Total Bilirubin 0.8 (0.2-1.3) mg/dL AST 29 (17-59) U/L ALT 31 (4-49) U/L Alkaline Phosphatase 79 (38-126) U/L Troponin I (0.000-0.034) ng/mL Total Protein 7.5 (6.3-8.2) g/dL Albumin 4.4 (3.5-5.0) g/dL 11/12/22 Range/Units 17:56 WBC (3.8-10.6) k/uL RBC (4.30-5.90) m/uL Hgb (13.0-17.5) gm/dL Hct (39.0-53.0) % MCV (80.0-100.0) fL MCH (25.0-35.0) pg MCHC (31.0-37.0) g/dL RDW (11.5-15.5) % Plt Count (150-450) k/uL MPV Neutrophils % % Lymphocytes % % Monocytes % % Eosinophils % % Basophils % % Neutrophils # (1.3-7.7) k/uL Lymphocytes # (1.0-4.8) k/uL Monocytes # (0-1.0) k/uL Eosinophils # (0-0.7) k/uL Basophils # (0-0.2) k/uL PT (9.0-12.0) sec INR (<1.2) APTT (22.0-30.0) sec D-Dimer (<0.60) mg/L FEU Sodium (137-145) mmol/L Potassium (3.5-5.1) mmol/L Chloride (98-107) mmol/L Carbon Dioxide (22-30) mmol/L Anion Gap mmol/L BUN (9-20) mg/dL Creatinine (0.66-1.25) mg/dL Est GFR (CKD-EPI)AfAm (>60 ml/min/1.73 sqM) Est GFR (CKD-EPI)NonAf (>60 ml/min/1.73 sqM) Glucose (74-99) mg/dL Calcium (8.4-10.2) mg/dL Magnesium (1.6-2.3) mg/dL Total Bilirubin (0.2-1.3) mg/dL AST (17-59) U/L ALT (4-49) U/L Alkaline Phosphatase (38-126) U/L Troponin I <0.012 (0.000-0.034) ng/mL Total Protein (6.3-8.2) g/dL Albumin (3.5-5.0) g/dL Critical Care Time Critical Care Time: Yes Total Critical Care Time: 33 <Damion Mckenna - Last Filed: 11/12/22 19:47> Disposition Is patient prescribed a controlled substance at d/c from ED?: No <Jyoti Mcdaniel - Last Filed: 11/12/22 17:49> Is patient prescribed a controlled substance at d/c from ED?: No Time of Disposition: 18:26 <Damion Mckenna - Last Filed: 11/12/22 19:47> Clinical Impression: Angina pectoris Disposition: ADMITTED IP TO THIS [facility] Condition: Good Prescriptions: Lidocaine 5% Patch [Lidoderm 5% Patch] 1 patch TOPICAL DAILY PRN #7 patch PRN Reason: Pain Referrals: David Carevr MD [Primary Care Provider] - 1-2 days Jama Coe MD [STAFF PHYSICIAN] - 1-2 days
[2022-11-12] MEDS ORDERED: NITROGLYCERIN SL TABS 0.4 MG TAB SUBLINGUAL STA ×3 (17:49)
[2022-11-12] MEDS ORDERED: ASPIRIN 81 MG PO STA ×2 (17:49→18:11)
[2022-11-12 18:06] LABS: Basophils % (A) 0 %; Eosinophils # (A) 0.2 k/uL (0-0.7); Eosinophils % (A) 3 %; HCT 51.8 % (39.0-53.0); HGB 17.9 gm/dL (13.0-17.5); Lymphocytes # (A) 2.6 k/uL (1.0-4.8); Lymphocytes % (A) 31 %; MCHC 34.5 g/dL (31.0-37.0); MCV 89.8 fL (80.0-100.0); Mean Platelet Volume 7.7; Monocytes # (A) 0.5 k/uL (0-1.0); Monocytes % (A) 5 %; Neutrophils # (A) 5.1 k/uL (1.3-7.7); Neutrophils % (A) 59 %; Platelet Count 447 k/uL (150-450); RBC 5.76 m/uL (4.30-5.90); RDW 12.3 % (11.5-15.5); WBC 8.5 k/uL (3.8-10.6)
[2022-11-12] MEDS ORDERED: SODIUM CHLORIDE 0.9% 1,000 ML IV STA ×2 (18:11)
[2022-11-12] MEDS ORDERED: ATORVASTATIN 80 MG TAB PO STA (18:11)
[2022-11-12] MEDS ORDERED: NITROGLYCERIN OINT 1 INCH/GM PACKET TOPICAL STA (18:11)
[2022-11-12 18:14] LABS: ALT 31 U/L (4-49); AST 29 U/L (17-59); African American GFR (CKD) >90 (>60 ml/min/1.73 sqM); Albumin 4.4 g/dL (3.5-5.0); Alkaline Phosphatase 79 U/L (38-126); Anion Gap 11 mmol/L; Blood Urea Nitrogen 24 mg/dL (9-20); Calcium 9.9 mg/dL (8.4-10.2); Carbon Dioxide 28 mmol/L (22-30); Chloride 97 mmol/L (98-107); Glucose 333 mg/dL (74-99); Magnesium 1.3 mg/dL (1.6-2.3); Non-African American GFR(CKD) >90 (>60 ml/min/1.73 sqM); Potassium 4.5 mmol/L (3.5-5.1); Sodium 136 mmol/L (137-145); Total Bilirubin 0.8 mg/dL (0.2-1.3); Total Protein 7.5 g/dL (6.3-8.2)
[2022-11-12 18:23] LABS: INR 0.9 (<1.2); Partial Thromboplastin Time 23.1 sec (22.0-30.0); Prothrombin Time 9.9 sec (9.0-12.0)
--- NOTE | 2022-11-12 18:28 | XR ---
EXAMINATION TYPE: XR chest 2V DATE OF EXAM: 11/12/2022 COMPARISON: 08/04/2020 HISTORY: 62-year-old male with pain from lifting injury TECHNIQUE: PA and lateral views FINDINGS: Heart normal size. Aorta and pulmonary vasculature within normal limits. Mild hyperinflation. No cons olidation or pleural effusion. IMPRESSION: COPD. No acute process seen.
--- NOTE | 2022-11-12 18:56 | CT ---
EXAMINATION TYPE: CT angio thor/abd DATE OF EXAM: 11/12/2022 COMPARISON: None HISTORY: 62-year-old male with chest and back pain, left shoulder pain CT DLP: 1311.7 mGycm. Automated Exposure Control for Dose Reduction was Utilized. TECHNIQUE: CT of the chest and abdomen before and after IV contrast administration. Arterial phase im aging is utilized. Coronal and sagittal MIP reconstructions. 3-D reconstructions generated on a [employer] independent workstation. FINDINGS: CHEST: The heart is normal size with small anterior basilar pericardial effusion measuring 9 mm thick. No fl attening of the interventricular septum or reflux of contrast into the hepatic veins. Initial noncontrast images show no evidence for acute intramural hematoma of the aorta. There is conv entional branching anatomy. Aorta is normal caliber. Descending thoracic aorta is mildly tortuous. No aortic dissection is seen. Scattered nonenlarged mediastinal lymph nodes measuring up to 8 mm lower right paratracheal region. N o thoracic lymphadenopathy by CT size criteria. Satisfactory opacification of the pulmonary arterial system. No evidence for pulmonary embolus. There is mild diffuse bronchial wall thickening that could represent bronchitis or asthma. Minimal st everette atelectasis in the lower lungs. No consolidation or pleural effusion. ABDOMEN: Tiny hiatal hernia. Noncontrast and arterial phase imaging of the liver, gallbladder, adrenal glands, spleen, and pancrea s within normal limits. A few scattered bilateral renal cortical cysts measuring up to 3.0 cm. A few nonobstructive renal kiko culi on both sides measuring up to 4 mm. Duodenal diverticulum noted measuring up to 4.6 cm. No dilated small bowel, free fluid, or free air. No mesenteric or retroperitoneal lymphadenopathy. Normal appendix. Mild superimposed. Sigmoid diverticulosis. No pericolonic inflammatory change seen. Mild scattered atherosclerotic calcifications infrarenal abdominal aorta more moderate within the yolanda ateral internal iliac arteries. Pelvis not imaged. BONES: Moderate spondylotic change lower thoracic spine with accentuated lower thoracic kyphosis. Facet arth ropathy mid to lower lumbar spine. Degenerative grade 1 anterolisthesis L4-L5 with transitional lumbo sacral segment. Normal variant sternal foramen. IMPRESSION: 1. No evidence for aortic aneurysm or aortic dissection. No evidence for PE. 2. Some bronchial wall thickening may be chronic. It may also be seen with bronchitis or asthma. 3. Sigmoid diverticulosis without acute diverticulitis. 4. A few bilateral nonobstructive renal calculi measuring up to 4 mm.
[2022-11-12] MEDS ORDERED: NITROGLYCERIN SL TABS 0.4 MG TAB SUBLINGUAL PRN (19:48)
[2022-11-12] MEDS: lisinopriL 10 MG TAB PO SCH (20:03)
[2022-11-12] MEDS ORDERED: MAGNESIUM OXIDE 400 MG TAB PO STA (20:48)
[2022-11-12] MEDS ORDERED: MAGNESIUM SULFATE-D5W PMX 1 GM in DEXTROSE/WATER 1 100ML.BAG IVPB ONE (20:48)
[2022-11-12] MEDS: metFORMIN 500 MG TAB PO SCH (22:49)
[2022-11-12] MEDS ORDERED: DEXTROSE 50% SYRINGE 50 ML IVP PRN ×2 (23:40)
--- NOTE | 2022-11-12 23:57 | P.HPIM ---
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 denies any urinary or bowel habit changes. today he felt left shoulder pain , associated with nausea and discomfort across his anterior lower chest , denies any SOB, fever, chills, cough, vomiting, GI bleeding. denies any trauma , recent travel or hospital stay workup in the ED showed concerning EKG with inferior leads t wave changes, and q wave in Lead III. cardiology notified, and recommended monitoring and cardiac workup overnight . CTA of the chest showed no acute PE or aortic dissection. he reports remote normal stress test in the past/ denies smoking , illicit drugs or alcohol review of systems Pertinent positives as noted in HPI. All other systems were reviewed and are negative on exam Constitutional: No acute distress, conversant, pleasant Eyes: Anicteric sclerae, moist conjunctiva, Pupils equal round reactive to light ENMT: NC/AT Oropharynx clear, no erythema, or exudates Neck: Supple, no masses, or JVD No carotid bruits No thyromegaly Lungs: Clear to auscultation Clear to percussion Normal respiratory effort, no accessory muscle use Cardiovascular: Heart regular in rate and rhythm, No murmurs, gallops, or rubs No peripheral edema Abdominal: Soft Nontender, no guarding, rebound or rigidity Abdomen moving with respiration Normoactive bowel sounds No hepatomegaly, No splenomegaly No palpable mass No abdominal wall hernia noted Skin: Normal temperature, tone, texture, turgor No induration No subcutaneous nodules No rash, lesions No ulcers Extremities: No digital cyanosis No clubbing Pedal pulses intact and symmetrical Radial pulses intact and symmetrical No calf tenderness Psychiatric: Alert and oriented to person, place and time Appropriate affect fair judgement Neuro Muscles Strength 5/5 in all 4 extremities Sensation to light touch grossly present throughout Cranial nerves II-XII grossly intact Lymphatics: no palpable cervical or supraclavicular lymph nodes Past Medical History Past Medical History: Diabetes Mellitus, GERD/Reflux, Hypertension History of Any Multi-Drug Resistant Organisms: None Reported Past Surgical History: No Surgical Hx Reported Past Psychological History: No Psychological Hx Reported Smoking Status: Never smoker Past Alcohol Use History: None Reported Past Drug Use History: None Reported Medications and Allergies Home Medications Medication Instructions Recorded Confirmed Type Aspirin EC [Ecotrin Low Dose] 81 mg PO DAILY 11/12/22 11/12/22 History Glimepiride [Amaryl] 4 mg PO AC-BRKFST 11/12/22 11/12/22 History Lidocaine 5% Patch [Lidoderm 5% 1 patch TOPICAL DAILY PRN #7 patch 11/12/22 Rx Patch] Rosuvastatin Calcium 5 mg PO DAILY 11/12/22 11/12/22 History lisinopriL [Zestril] 10 mg PO DAILY 11/12/22 11/12/22 History metFORMIN HCL [Glucophage] 1,000 mg PO BID 11/12/22 11/12/22 History Allergies Allergy/AdvReac Type Severity Reaction Status Date / Time No Known Allergies Allergy Verified 11/12/22 19:46 Physical Exam Vitals: Vital Signs Temp Pulse Resp BP Pulse Ox 11/12/22 22:53 98.0 F 82 20 136/92 98 11/12/22 19:51 98.0 F 83 20 149/105 96 11/12/22 18:20 95 18 135/117 98 11/12/22 16:46 98 F 100 20 142/66 96 Intake and Output 11/12/22 11/12/22 11/13/22 14:59 22:59 06:59 Other: Weight 82.554 kg Results CBC & Chem 7: 11/12/22 17:56 11/12/22 17:56 Labs: Abnormal Lab Results - Last 24 Hours (Table) 11/12/22 11/12/22 Range/Units 17:56 17:56 Hgb 17.9 H (13.0-17.5) gm/dL Sodium 136 L (137-145) mmol/L Chloride 97 L (98-107) mmol/L BUN 24 H (9-20) mg/dL Glucose 333 H (74-99) mg/dL Magnesium 1.3 L (1.6-2.3) mg/dL Assessment and Plan Assessment: 62 year old male with DM hypertension , coming in for left shoulder pain and lower chest pain, and lower back pain, EKG was showing concerning T wave changes , I discussed the case with ED doc , and I accepted the admission for chest pain to rule out ACS with anticipated length of stay < 2 midnights atypical chest pain rule out ACS EKG showing T wave changes and q wave in inferior leads trops negative , continue to trend CTA chest no acute pathology , no acute PE , no aortic dissection cardiology consult night monitor monitor vital signs resume ASA, statin nitro PRN for chest pain IVF hydration with normal saline 130 cc per hour hypomagnesemia replace IV , and follow up levels hypertension controlled resume lisinopril DM resume oral hypoglycemic agents insulin sliding scale blood work overall unremarkable Na 136, K 4.5, BUN 24 , Cr 0.7 Hgb 17.9, WBC 8.5 full code DVT PPX heparin sc tid 5000 units
[2022-11-13] MEDS: NITROGLYCERIN OINT 1 INCH/GM PACKET TOPICAL SCH ×4 (00:16→17:51)
[2022-11-13 01:59] LABS: Glucose,Whole Blood 232 mg/dL (70-110)
[2022-11-13 06:44] LABS: Glucose,Whole Blood 276 mg/dL (70-110)
[2022-11-13] MEDS: INSULIN ASPART (NovoLOG) 100 UNIT/ML VIAL SQ SCH ×4 (06:45→21:31)
[2022-11-13] MEDS ORDERED: GLIMEPIRIDE 4 MG TAB PO SCH (07:30)
[2022-11-13] MEDS: lisinopriL 10 MG TAB PO SCH (09:00)
[2022-11-13] MEDS ORDERED: ASPIRIN 325 MG TAB PO SCH (09:00)
[2022-11-13] MEDS ORDERED: ATORVASTATIN 10 MG TAB PO SCH (09:00)
[2022-11-13] MEDS: metFORMIN 500 MG TAB PO SCH (09:01)
[2022-11-13] MEDS ORDERED: ASPIRIN 81 MG PO SCH (10:00)
[2022-11-13 11:17] LABS: Glucose,Whole Blood 203 mg/dL (70-110)
--- NOTE | 2022-11-13 13:11 | P.PN ---
Subjective Progress Note Date: 11/13/22 Hospital Course: 63-year-old male with a history of type 2 diabetes, hypertension, dyslipidemia, presenting with left shoulder pain which was associated with nausea, discomfort across his anterior lower chest. EKG in the ED showed some nonspecific T-wave changes in inferior leads. CTA of chest did not show any acute PE or aortic dissection. Laboratory workup shows hyperglycemia, magnesium 1.3, troponin negative 3. Cardiology consulted. Patient admitted for chest pain and further workup. Subjective: Patient seen and examined at bedside. No acute events overnight. Currently chest pain-free. Pertinent positives and negatives as discussed above, a complete review of syst ems was performed and all other systems are negative. Vitals Signs Reviewed. General: nontoxic, no distress, appears at stated age Derm: warm, dry Head: atraumatic, normocephalic, symmetric Eyes: EOMI, no lid lag, anicteric sclera Mouth: no lip lesion, mucus membranes moist Cardiovascular: S1S2 reg, no murmur Lungs: CTA bilateral, no rhonchi, no rales , no accessory muscle use Abdominal: soft, nontender to palpation, no guarding, no appreciable organomegaly Ext: no gross muscle atrophy, no edema, no contractures Neuro: CN II-XI grossly intact, no focal neuro deficits Psych: Alert, oriented, appropriate affect Data Reviewed Today: Pertinent Labs: Blood sugars ranging between 203 03/17/1975 Imaging: No new imaging Assessment and Plan: Left shoulder sprain Chest pain likely radiating from shoulder, ACS ruled out Type 2 diabetes with hyperglycemia Hypomagnesemia -Tylenol PRN for pain -Cardiology has been consulted -Continue telemetry -On aspirin and statin -Echo pending -Repeat magnesium level tomorrow -On sliding scale insulin, A1c pending Chronic: Dyslipidemia Hypertension DVT ppx: Subcu heparin Code status: Full Code Anticipated discharge place: Home Anticipated discharge time: Likely tomorrow Objective - Vital Signs Vital signs: Vital Signs Temp 98.2 F 11/13/22 08:00 Pulse 71 11/13/22 08:00 Resp 18 11/13/22 08:00 BP 145/91 11/13/22 08:00 Pulse Ox 98 11/13/22 08:00 FiO2 Intake & Output 11/12/22 11/13/22 11/13/22 18:59 06:59 18:59 Weight 82.554 kg 82.554 kg - Labs CBC & Chem 7: 11/12/22 17:56 11/12/22 17:56 Labs: Abnormal Lab Results - Last 24 Hours (Table) 11/12/22 11/12/22 11/13/22 Range/Units 17:56 17:56 01:58 Hgb 17.9 H (13.0-17.5) gm/dL Sodium 136 L (137-145) mmol/L Chloride 97 L (98-107) mmol/L BUN 24 H (9-20) mg/dL Glucose 333 H (74-99) mg/dL POC Glucose (mg/dL) 232 H (70-110) mg/dL Magnesium 1.3 L (1.6-2.3) mg/dL 11/13/22 11/13/22 Range/Units 06:42 11:16 Hgb (13.0-17.5) gm/dL Sodium (137-145) mmol/L Chloride (98-107) mmol/L BUN (9-20) mg/dL Glucose (74-99) mg/dL POC Glucose (mg/dL) 276 H 203 H (70-110) mg/dL Magnesium (1.6-2.3) mg/dL
[2022-11-13] MEDS: ACETAMINOPHEN TAB 325 MG TAB PO PRN (13:57)
[2022-11-13] MEDS: ATORVASTATIN 40 MG TAB PO SCH (13:58)
[2022-11-13 14:49] LABS: Chol/HDL Ratio 4.14 Ratio; LDL Cholesterol,Calculated 80.9 mg/dL (0.0-131.0)
--- NOTE | 2022-11-13 15:03 | P.CRDCN ---
History of Present Illness Consult date: 11/13/22 Consult reason: chest pain History of present illness: This is Nelson Orta NP, I'm dictating on behalf of Dr. Schmidt's H&P and A&P The patient was interviewed and examined. HPI: Patient is a pleasant 62-year-old male with a past medical history that includes diabetes mellitus, GERD, and hypertension who presents to the hospital with complaints of back pain radiating into the chest. 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 Patient reports that this pain came and went, but over the next couple of days started to get worse. Yesterday afternoon, the patient reports the pain felt like it was coming through his chest, which concerned him and had him present to the emergency department for evaluation. In the emergency department the patient was found to have negative troponin, however his EKG was significant for ST elevation in leads II and aVF, and precordial leads v2 through v6. This was concerning for possible AL, and cardiology was consulted to evaluate. This morning the patient was evaluated the bedside. He was reporting that while lying down he is having no pain whatsoever, but states it mostly comes on when he is standing up or moving around while standing for a period of time. This pain was reproducible to palpation. The patient at this time denies chest pain, shortness of breath, heart palpitations, nausea, vomiting, diaphoresis, and near syncope. The patient states that he feels significantly better. ROS: [No fever, chills, or rigors] [no cough, phlegm, or expectoration] [no nausea, vomiting, or diarrhea] [no hematuria, dysuria] [no musculoskelatal complaints] [no strokes or seizures] [no skin lesions] EXAMINATION: GENERAL: Well-appearing, well-nourished and in no acute distress. NECK: Supple without JVD or thyromegaly. LUNGS: Breath sounds clear to auscultation bilaterally. Respiration equal and unlabored. No wheezes, rales or rhonchi. HEART: Regular rate and rhythm without murmurs, rubs or gallops. S1 and S2 heard. EXTREMITIES: Normal range of motion, no edema. No clubbing or cyanosis. Peripheral pulses intact and strong. REVIEW OF LABS, ECG & MEDICAL DATA: LABS: White count 8.5, hemoglobin 17.9, platelets 447, sodium 136, potassium 4.5, BUN 24, creatinine 0.75, magnesium 1.3, troponin 13-less than 0.012, triglycerides 301, cholesterol 186, LDL 80.9, HDL 44.9 EKG: Normal sinus rhythm, with ST elevation in leads II, aVF, V2 through 6. IMAGING: Chest x-ray dated 11/12/2022 demonstrates no acute process seen, COPD. CT angiogram of the abdomen and chest dated 11/12/2022 demonstrates no evidence for aortic aneurysm or aortic dissection, no evidence for PE, some bronchial wal l thickening may be chronic, it may also be seen with bronchitis or asthma, sigmoid diverticulosis without acute diverticulitis, and a few bilateral nonobstructive renal calculi measuring up to 4 mm. VITALS: Temp 98.2, pulse 71, respirations 18, blood pressure 145/91, O2 saturation 98% on room air IMPRESSION: 1. Old ST elevated myocardial infarction, noted on EKG 2. Hypertension 3. Diabetes mellitus, per patient currently uncontrolled 4. Left rhomboid strain PLAN: Obtain echocardiogram. Start atorvastatin 40 mg daily. Obtain lipid panel and hemoglobin A1c. Focus at this time should be on maximizing medical therapy. Patient would benefit from an outpatient angiogram within the next one to [address] elevations on his EKG are consistent with an old AL. Patient is unaware of this happening. Further recommendations based on patient's clinical course. Thank you for the consult and allowing us to participate in the care of this patient. Past Medical History Past Medical History: Diabetes Mellitus, GERD/Reflux, Hypertension History of Any Multi-Drug Resistant Organisms: None Reported Past Surgical History: No Surgical Hx Reported Past Psychological History: No Psychological Hx Reported Smoking Status: Never smoker Past Alcohol Use History: None Reported Past Drug Use History: None Reported Medications and Allergies Home Medications Medication Instructions Recorded Confirmed Type Aspirin EC [Ecotrin Low Dose] 81 mg PO DAILY 11/12/22 11/12/22 History Glimepiride [Amaryl] 4 mg PO AC-BRKFST 11/12/22 11/12/22 History Lidocaine 5% Patch [Lidoderm 5% 1 patch TOPICAL DAILY PRN #7 patch 11/12/22 Rx Patch] Rosuvastatin Calcium 5 mg PO DAILY 11/12/22 11/12/22 History lisinopriL [Zestril] 10 mg PO DAILY 11/12/22 11/12/22 History metFORMIN HCL [Glucophage] 1,000 mg PO BID 11/12/22 11/12/22 History Allergies Allergy/AdvReac Type Severity Reaction Status Date / Time No Known Allergies Allergy Verified 11/12/22 19:46 Physical Exam Vitals: Vital Signs Temp Pulse Pulse Resp BP BP Pulse Ox 11/13/22 08:00 98.2 F 71 18 145/91 98 11/13/22 05:22 98.1 F 98 18 141/94 97 11/13/22 00:12 90 19 127/78 99 11/12/22 22:53 98.0 F 82 20 136/92 98 11/12/22 19:51 98.0 F 83 20 149/105 96 11/12/22 18:20 95 18 135/117 98 11/12/22 16:46 98 F 100 20 142/66 96 Intake and Output 11/12/22 11/13/22 11/13/22 22:59 06:59 14:59 Other: Weight 82.554 kg Results 11/12/22 17:56 11/12/22 17:56 Cardiac Enzymes 11/12/22 11/12/22 11/12/22 Range/Units 17:56 17:56 19:45 AST 29 (17-59) U/L Troponin I <0.012 <0.012 (0.000-0.034) ng/mL 11/12/22 11/13/22 Range/Units 20:59 00:30 AST (17-59) U/L Troponin I <0.012 <0.012 (0.000-0.034) ng/mL Coagulation 11/12/22 Range/Units 17:56 PT 9.9 (9.0-12.0) sec APTT 23.1 (22.0-30.0) sec Lipids 11/12/22 Range/Units 17:56 Triglycerides 301.00 H (0.00-149.00) mg/dL Cholesterol 186.00 (0.00-200.00) mg/dL HDL Cholesterol 44.90 (40.00-60.00) mg/dL Cholesterol/HDL Ratio 4.14 Ratio CBC 11/12/22 Range/Units 17:56 WBC 8.5 (3.8-10.6) k/uL RBC 5.76 (4.30-5.90) m/uL Hgb 17.9 H (13.0-17.5) gm/dL Hct 51.8 (39.0-53.0) % Plt Count 447 (150-450) k/uL Comprehensive Metabolic Panel 11/12/22 Range/Units 17:56 Sodium 136 L (137-145) mmol/L Potassium 4.5 (3.5-5.1) mmol/L Chloride 97 L (98-107) mmol/L Carbon Dioxide 28 (22-30) mmol/L BUN 24 H (9-20) mg/dL Creatinine 0.75 (0.66-1.25) mg/dL Glucose 333 H (74-99) mg/dL Calcium 9.9 (8.4-10.2) mg/dL AST 29 (17-59) U/L ALT 31 (4-49) U/L Alkaline Phosphatase 79 (38-126) U/L Total Protein 7.5 (6.3-8.2) g/dL Albumin 4.4 (3.5-5.0) g/dL Current Medications Generic Name Dose Route Start Last Admin Trade Name Freq PRN Reason Stop Dose Admin Acetaminophen 650 mg 11/13/22 12:13 11/13/22 13:57 Acetaminophen Tab 325 Mg Tab PO 650 mg Q6HR PRN Administration Fever and/ or Pain Aspirin 81 mg 11/14/22 09:00 Aspirin 81 Mg PO DAILY [facility] Atorvastatin Calcium 40 mg 11/13/22 10:00 11/13/22 13:58 Atorvastatin 40 Mg Tab PO 40 mg DAILY CECILIA Administration Dextrose/Water 25 ml 11/12/22 23:40 Dextrose 50% Syringe 50 Ml IVP PER PROTOCOL PRN Hypoglycemia Protocol Dextrose/Water 50 ml 11/12/22 23:40 Dextrose 50% Syringe 50 Ml IVP PER PROTOCOL PRN Hypoglycemia Protocol Insulin Aspart 0 unit 11/13/22 07:30 11/13/22 14:23 Insulin Aspart (Novolog) 100 Unit/Ml Vial SQ Not Given ACHS [facility] Protocol Lisinopril 10 mg 11/12/22 20:00 11/13/22 09:00 Lisinopril 10 Mg Tab PO 10 mg DAILY CECILIA Administration Nitroglycerin 0.4 mg 11/12/22 19:48 Nitroglycerin Sl Tabs 0.4 Mg Tab SUBLINGUAL Q5M PRN Chest Pain Nitroglycerin 1 inch 11/13/22 00:00 11/13/22 14:23 Nitroglycerin Oint 1 Inch/Gm Packet TOPICAL Not Given Q6HR [facility]ECILIA Sodium Chloride 10 ml 11/12/22 21:00 11/13/22 09:01 Sodium Chloride 0.9% Flush 10 Ml Syringe IV 10 ml BID CECILIA Administration Intake and Output 11/12/22 11/13/22 11/13/22 22:59 06:59 14:59 Other: Weight 82.554 kg 11/12/22 17:56 11/12/22 17:56
[2022-11-13 16:30] LABS: Glucose,Whole Blood 177 mg/dL (70-110)
[2022-11-14] MEDS: NITROGLYCERIN OINT 1 INCH/GM PACKET TOPICAL SCH ×3 (01:55→11:30)
[2022-11-14] MEDS: INSULIN ASPART (NovoLOG) 100 UNIT/ML VIAL SQ SCH ×4 (07:01→20:25)
[2022-11-14 07:28] LABS: Basophils % (A) 1 %; Eosinophils # (A) 0.1 k/uL (0-0.7); Eosinophils % (A) 2 %; HCT 50.2 % (39.0-53.0); Lymphocytes # (A) 2.7 k/uL (1.0-4.8); Lymphocytes % (A) 35 %; MCH 30.4 pg (25.0-35.0); MCHC 33.9 g/dL (31.0-37.0); MCV 89.9 fL (80.0-100.0); Monocytes # (A) 0.5 k/uL (0-1.0); Monocytes % (A) 6 %; Neutrophils # (A) 4.3 k/uL (1.3-7.7); Neutrophils % (A) 55 %; Platelet Count 369 k/uL (150-450); RBC 5.59 m/uL (4.30-5.90); WBC 7.8 k/uL (3.8-10.6)
[2022-11-14] MEDS: ACETAMINOPHEN TAB 325 MG TAB PO PRN (07:37)
[2022-11-14 07:59] LABS: ALT 29 U/L (4-49); AST 23 U/L (17-59); African American GFR (CKD) >90 (>60 ml/min/1.73 sqM); Albumin 4.1 g/dL (3.5-5.0); Alkaline Phosphatase 74 U/L (38-126); Anion Gap 11 mmol/L; Blood Urea Nitrogen 15 mg/dL (9-20); Calcium 9.8 mg/dL (8.4-10.2); Carbon Dioxide 28 mmol/L (22-30); Chloride 98 mmol/L (98-107); Glucose 215 mg/dL (74-99); Magnesium 1.1 mg/dL (1.6-2.3); Non-African American GFR(CKD) >90 (>60 ml/min/1.73 sqM); Potassium 4.8 mmol/L (3.5-5.1); Sodium 137 mmol/L (137-145); Total Bilirubin 1.3 mg/dL (0.2-1.3)
[2022-11-14] MEDS: lisinopriL 10 MG TAB PO SCH (08:18)
[2022-11-14] MEDS: ASPIRIN 81 MG PO SCH (08:18)
[2022-11-14] MEDS: ATORVASTATIN 40 MG TAB PO SCH (08:18)
[2022-11-14] MEDS: HYDROcodone/APAP 5-325MG 1 EACH TAB PO PRN (08:29)
[2022-11-14 08:32] LABS: Glucose,Whole Blood 223 mg/dL (70-110)
[2022-11-14] MEDS: MAGNESIUM SULFATE-D5W PMX 1 GM in DEXTROSE/WATER 1 100ML.BAG IVPB SCH ×4 (09:11→13:52)
--- NOTE | 2022-11-14 10:54 | P.PN ---
Subjective HISTORY OF PRESENT ILLNESS: 11/13/2022 Patient is a pleasant 62-year-old male with a past medical history that includes diabetes mellitus, GERD, and hypertension who presents to the hospital with complaints of back pain radiating into the chest. 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 Patient reports that this pain came and went, but over the next couple of days started to get worse. Yesterday afternoon, the patient reports the pain felt like it was coming through his chest, which concerned him and had him present to the emergency department for evaluation. In the emergency department the patient was found to have negative troponin, however his EKG was significant for ST elevation in leads II and aVF, and precordial leads v2 through v6. This was concerning for possible NH, and cardiology was consulted to evaluate. This morning the patient was evaluated the bedside. He was reporting that while lying down he is having no pain whatsoever, but states it mostly comes on when he is standing up or moving around while standing for a period of time. This pain was reproducible to palpation. The patient at this time denies chest pain, shortness of breath, heart palpitations, nausea, vomiting, diaphoresis, and near syncope. The patient states that he feels significantly better. LABS: White count 8.5, hemoglobin 17.9, platelets 447, sodium 136, potassium 4.5, BUN 24, creatinine 0.75, magnesium 1.3, troponin 13-less than 0.012, triglycerides 301, cholesterol 186, LDL 80.9, HDL 44.9 EKG: Normal sinus rhythm, with ST elevation in leads II, aVF, V2 through 6. IMAGING: Chest x-ray dated 11/12/2022 demonstrates no acute process seen, COPD. CT angiogram of the abdomen and chest dated 11/12/2022 demonstrates no evidence for aortic aneurysm or aortic dissection, no evidence for PE, some bronchial wall thickening may be chronic, it may also be seen with bronchitis or asthma, sigmoid diverticulosis without acute diverticulitis, and a few bilateral nonobstructive renal calculi measuring up to 4 mm. 11/14/2022 Patient examined this morning in the emergency room. Patient currently denies chest pain or pressure. He denies shortness of breath. He reports back pain underneath his left shoulder that he feels it is radiating to the front of his chest. Vital signs are stable. PHYSICAL EXAM: VITAL SIGNS: Reviewed. GENERAL: Well-developed in no acute distress. NECK: Supple. No JVD or thyromegaly LUNGS: Respirations even and unlabored. Lungs essentially clear to auscultation bilaterally. HEART: Regular rate and rhythm. S1 and S2 heard. EXTREMITIES: Normal range of motion. No clubbing or cyanosis. Peripheral pulses intact. No lower extremity edema ASSESSMENT: Left shoulder/back pain with abnormal EKG, concerning for angina Hypertension Diabetes PLAN: Continue current cardiac medications Await results of 2-D echo Recommend either stress testing versus cardiac catheterization depending on results of echocardiogram. Further recommendations pending patient course Nurse practitioner note has been reviewed by physician. Signing provider agrees with the documented findings, assessment, and plan of care. Objective - Vital Signs Vital signs: Vital Signs Temp 98.3 F 11/14/22 08:00 Pulse 84 11/14/22 08:00 Resp 18 11/14/22 08:00 BP 149/109 11/14/22 08:00 Pulse Ox 97 11/14/22 08:00 FiO2 Intake & Output 11/13/22 11/14/22 11/14/22 18:59 06:59 18:59 Other: Voiding Method Toilet Urinal # Voids 2 - Labs CBC & Chem 7: 11/14/22 07:06 11/14/22 07:06 Labs: Abnormal Lab Results - Last 24 Hours (Table) 11/12/22 11/12/22 11/13/22 Range/Units 17:56 17:56 11:16 Glucose (74-99) mg/dL POC Glucose (mg/dL) 203 H (70-110) mg/dL Hemoglobin A1c 9.4 H (<=6.0) % Magnesium (1.6-2.3) mg/dL Triglycerides 301.00 H (0.00-149.00) mg/dL VLDL Cholesterol, Calc 60.20 H (5.00-40.00) mg/dL 11/13/22 11/13/22 11/14/22 Range/Units 11:17 16:28 07:06 Glucose 215 H (74-99) mg/dL POC Glucose (mg/dL) 177 H (70-110) mg/dL Hemoglobin A1c 9.5 H (<=6.0) % Magnesium 1.1 L (1.6-2.3) mg/dL Triglycerides (0.00-149.00) mg/dL VLDL Cholesterol, Calc (5.00-40.00) mg/dL 11/14/22 Range/Units 08:31 Glucose (74-99) mg/dL POC Glucose (mg/dL) 223 H (70-110) mg/dL Hemoglobin A1c (<=6.0) % Magnesium (1.6-2.3) mg/dL Triglycerides (0.00-149.00) mg/dL VLDL Cholesterol, Calc (5.00-40.00) mg/dL
[2022-11-14 11:24] LABS: Glucose,Whole Blood 305 mg/dL (70-110)
--- NOTE | 2022-11-14 12:32 | P.PN ---
Subjective Progress Note Date: 11/14/22 Hospital Course: 63-year-old male with a history of type 2 diabetes, hypertension, dyslipidemia, presenting with left shoulder pain which was associated with nausea, discomfort across his anterior lower chest. EKG in the ED showed some nonspecific T-wave changes in inferior leads. CTA of chest did not show any acute PE or aortic dissection. Laboratory workup shows hyperglycemia, magnesium 1.3, troponin negative 3. Cardiology consulted. Patient admitted for chest pain and further workup. Echo pending. Subjective: Patient seen and examined at bedside. No acute events overnight. Currently chest pain-free. Still has shoulder pain. Pertinent positives and negatives as discussed above, a complete review of systems was performed and all other systems are negative. Vitals Signs Reviewed. General: nontoxic, no distress, appears at stated age Derm: warm, dry Head: atraumatic, normocephalic, symmetric Eyes: EOMI, no lid lag, anicteric sclera Mouth: no lip lesion, mucus membranes moist Cardiovascular: S1S2 reg, no murmur Lungs: CTA bilateral, no rhonchi, no rales , no accessory muscle use Abdominal: soft, nontender to palpation, no guarding, no appreciable organo megaly Ext: no gross muscle atrophy, no edema, no contractures Neuro: CN II-XI grossly intact, no focal neuro deficits Psych: Alert, oriented, appropriate affect Data Reviewed Today: Pertinent Labs: WBC 7.8, hemoglobin 17, potassium 4.8, creatinine 0.71, blood sugars range between 177-305 Imaging: No new imaging Assessment and Plan: Left shoulder sprain Chest pain likely radiating from shoulder, ACS ruled out Type 2 diabetes with hyperglycemia Hypomagnesemia -Tylenol and [place] PRN for pain -Cardiology note reviewed, pending echocardiogram -Continue telemetry -4 g IV magnesium ordered -Repeat magnesium level tomorrow -On sliding scale insulin, A1c 9.5 -Currently on only 2 oral diabetic medications, given poor glycemic control, will likely benefit from adding a third agent at the time of discharge Chronic: Dyslipidemia Hypertension DVT ppx: Subcu heparin Code status: Full Code Anticipated discharge place: Home Anticipated discharge time: Today or tomorrow Objective - Vital Signs Vital signs: Vital Signs Temp 98.4 F 11/14/22 11:33 Pulse 75 11/14/22 11:33 Resp 18 10/02/23 11:33 BP 144/101 11/14/22 11:33 Pulse Ox 96 11/14/22 11:33 FiO2 Intake & Output 11/13/22 11/14/22 11/14/22 18:59 06:59 18:59 Other: Voiding Method Toilet Urinal # Voids 2 - Labs CBC & Chem 7: 11/14/22 07:06 11/14/22 07:06 Labs: Abnormal Lab Results - Last 24 Hours (Table) 11/12/22 11/12/22 11/13/22 Range/Units 17:56 17:56 11:17 Glucose (74-99) mg/dL POC Glucose (mg/dL) (70-110) mg/dL Hemoglobin A1c 9.4 H 9.5 H (<=6.0) % Magnesium (1.6-2.3) mg/dL Triglycerides 301.00 H (0.00-149.00) mg/dL VLDL Cholesterol, Calc 60.20 H (5.00-40.00) mg/dL 11/13/22 11/14/22 11/14/22 Range/Units 16:28 07:06 08:31 Glucose 215 H (74-99) mg/dL POC Glucose (mg/dL) 177 H 223 H (70-110) mg/dL Hemoglobin A1c (<=6.0) % Magnesium 1.1 L (1.6-2.3) mg/dL Triglycerides (0.00-149.00) mg/dL VLDL Cholesterol, Calc (5.00-40.00) mg/dL 11/14/22 Range/Units 11:22 Glucose (74-99) mg/dL POC Glucose (mg/dL) 305 H (70-110) mg/dL Hemoglobin A1c (<=6.0) % Magnesium (1.6-2.3) mg/dL Triglycerides (0.00-149.00) mg/dL VLDL Cholesterol, Calc (5.00-40.00) mg/dL
[2022-11-14 16:33] LABS: Glucose,Whole Blood 293 mg/dL (70-110)
[2022-11-14] MEDS: HEPARIN SODIUM,PORCINE 5,000 UNIT/ML 1 ML VIAL SQ SCH (17:24)
--- NOTE | 2022-11-14 17:50 | CA ---
Transthoracic Echo Report Name: John Tristan Age: 62 Gender: M : 1960 Exam Date: 11/14/2022 12:16 Exam Location: [facility] Ht (in): 71 Wt (lb): 182 Ordering Physician: Nelson Orta Attending/Referring Phys: Roofing Superintendent Kimmy Albright RDCS Procedure CPT: Indications: Chest Pain Cardiac Hx: Technical Quality: Good Contrast 1: Total Dose (mL): Contrast 2: Total Dose (mL): MEASUREMENTS (Male / Female) Normal Values 2D ECHO LV Diastolic Diameter PLAX 4.3 cm 4.2 - 5.9 / 3.9 - 5.3 cm LV Systolic Diameter PLAX 2.9 cm IVS Diastolic Thickness 1.2 cm 0.6 - 1.0 / 0.6 - 0.9 cm LVPW Diastolic Thickness 1.1 cm 0.6 - 1.0 / 0.6 - 0.9 cm LV Relative Wall Thickness 0.5 RV Internal Dim ED PLAX 2.9 cm LA Systolic Diameter LX 3.4 cm 3.0 - 4.0 / 2.7 - 3.8 cm LA Volume 52.3 cm??? 18 - 58 / 22 - 52 cm??? LA Volume Index 25.6 cm???/m??? 16 - 28 cm???/m??? M-MODE Aortic Root Diameter MM 3.4 cm MV E Point Septal Separation 1.4 cm AV Cusp Separation MM 1.8 cm DOPPLER AV Peak Velocity 127.5 cm/s AV Peak Gradient 6.5 mmHg MV Area PHT 4.1 cm??? Mitral E Point Velocity 90.7 cm/s Mitral A Point Velocity 113.8 cm/s Mitral E to A Ratio 0.8 MV Deceleration Time 183.4 ms MV E' Velocity 8.2 cm/s Mitral E to MV E' Ratio 11.0 FINDINGS Left Ventricle Left ventricular ejection fraction is estimated at 55-60 %. Left ventricular cavity size normal. Mildly increased septal wall thickness. Right Ventricle Normal right ventricular size. Unable to estimate the right ventricular systolic pressure. Right Atrium Normal right atrial size. Left Atrium Normal left atrial size. Mitral Valve Structurally normal mitral valve. Trace mitral regurgitation. Aortic Valve Trileaflet aortic valve. No aortic valve stenosis or regurgitation. Tricuspid Valve Structurally normal tricuspid valve. No tricuspid regurgitation. Pulmonic Valve Structurally normal pulmonic valve. No pulmonic regurgitation. Pericardium No pericardial effusion. Aorta Normal size aortic root and proximal ascending aorta. CONCLUSIONS Normal LV systolic function Previewed by: Dr. Blue Braga MD (Electronically Signed) Final Date: 14 November 2022 17:49
[2022-11-14] MEDS: BENZOCAINE/MENTHOL LOZENG 1 EACH LOZENGE MUCOUS MEM PRN (18:08)
[2022-11-14 20:03] LABS: Glucose,Whole Blood 313 mg/dL (70-110)
[2022-11-14] MEDS: METOPROLOL TARTRATE 25 MG TAB PO SCH (20:25)
[2022-11-15] MEDS: HEPARIN SODIUM,PORCINE 5,000 UNIT/ML 1 ML VIAL SQ SCH ×3 (02:40→16:55)
[2022-11-15] MEDS: HYDROcodone/APAP 5-325MG 1 EACH TAB PO PRN (04:50)
[2022-11-15 05:49] LABS: Glucose,Whole Blood 262 mg/dL (70-110)
[2022-11-15] MEDS: INSULIN ASPART (NovoLOG) 100 UNIT/ML VIAL SQ SCH ×4 (06:13→21:37)
[2022-11-15] MEDS: ASPIRIN 81 MG PO SCH (09:13)
[2022-11-15] MEDS: ATORVASTATIN 40 MG TAB PO SCH (09:13)
[2022-11-15] MEDS: METOPROLOL TARTRATE 25 MG TAB PO SCH ×2 (09:16→21:36)
[2022-11-15] MEDS: lisinopriL 10 MG TAB PO SCH (09:20)
[2022-11-15 09:23] LABS: African American GFR (CKD) >90 (>60 ml/min/1.73 sqM); Anion Gap 9 mmol/L; Blood Urea Nitrogen 20 mg/dL (9-20); Calcium 9.3 mg/dL (8.4-10.2); Carbon Dioxide 30 mmol/L (22-30); Chloride 98 mmol/L (98-107); Glucose 211 mg/dL (74-99); Magnesium 1.6 mg/dL (1.6-2.3); Non-African American GFR(CKD) >90 (>60 ml/min/1.73 sqM); Potassium 4.6 mmol/L (3.5-5.1); Sodium 137 mmol/L (137-145)
[2022-11-15 11:59] LABS: Glucose,Whole Blood 260 mg/dL (70-110)
--- NOTE | 2022-11-15 12:44 | P.PN ---
Subjective HISTORY OF PRESENT ILLNESS: 11/13/2022 Patient is a pleasant 62-year-old male with a past medical history that includes diabetes mellitus, GERD, and hypertension who presents to the hospital with complaints of back pain radiating into the chest. 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 Patient reports that this pain came and went, but over the next couple of days started to get worse. Yesterday afternoon, the patient reports the pain felt like it was coming through his chest, which concerned him and had him present to the emergency department for evaluation. In the emergency department the patient was found to have negative troponin, however his EKG was significant for ST elevation in leads II and aVF, and precordial leads v2 through v6. This was concerning for possible [place], and cardiology was consulted to evaluate. This morning the patient was evaluated the bedside. He was reporting that while lying down he is having no pain whatsoever, but states it mostly comes on when he is standing up or moving around while standing for a period of time. This pain was reproducible to palpation. The patient at this time denies chest pain, shortness of breath, heart palpitations, nausea, vomiting, diaphoresis, and near syncope. The patient states that he feels significantly better. LABS: White count 8.5, hemoglobin 17.9, platelets 447, sodium 136, potassium 4.5, BUN 24, creatinine 0.75, magnesium 1.3, troponin 13-less than 0.012, triglycerides 301, cholesterol 186, LDL 80.9, HDL 44.9 EKG: Normal sinus rhythm, with ST elevation in leads II, aVF, V2 through 6. IMAGING: Chest x-ray dated 11/12/2022 demonstrates no acute process seen, COPD. CT angiogram of the abdomen and chest dated 11/12/2022 demonstrates no evidence for aortic aneurysm or aortic dissection, no evidence for PE, some bronchial wall thickening may be chronic, it may also be seen with bronchitis or asthma, sigmoid diverticulosis without acute diverticulitis, and a few bilateral nonobstructive renal calculi measuring up to 4 mm. 11/14/2022 Patient examined this morning in the emergency room. Patient currently denies chest pain or pressure. He denies shortness of breath. He reports back pain underneath his left shoulder that he feels it is radiating to the front of his chest. Vital signs are stable. 11/15/2022 Patient examined this morning at the bedside. Patient denies chest pain or pressure. He denies shortness of breath. He continues to report some left shoulder pain. Echocardiogram completed revealing ejection fraction 55-60% with no wall motion abnormalities noted. PHYSICAL EXAM: VITAL SIGNS: Reviewed. GENERAL: Well-developed in no acute distress. NECK: Supple. No JVD or thyromegaly LUNGS: Respirations even and unlabored. Lungs essentially clear to auscultation bilaterally. HEART: Regular rate and rhythm. S1 and S2 heard. EXTREMITIES: Normal range of motion. No clubbing or cyanosis. Peripheral pulses intact. No lower extremity edema ASSESSMENT: Left shoulder/back pain with abnormal EKG, concerning for angina Hypertension Diabetes PLAN: Continue current cardiac medications Patient to undergo stress echocardiogram today If stress echo is negative, patient may be discharged home today from a cardiac standpoint and follow up on an outpatient basis Further recommendations pending patient course Nurse practitioner note has been reviewed by physician. Signing provider agrees with the documented findings, assessment, and plan of care. Objective - Vital Signs Vital signs: Vital Signs Temp 97.8 F 11/15/22 12:00 Pulse 99 11/15/22 12:00 Resp 17 11/15/22 12:00 BP 116/78 11/15/22 12:00 Pulse Ox 95 11/15/22 12:00 FiO2 Intake & Output 11/14/22 11/15/22 11/15/22 18:59 06:59 18:59 Other: Voiding Method Toilet Toilet Toilet Urinal Urinal Urinal # Voids 1 - Labs CBC & Chem 7: 11/14/22 07:06 11/15/22 08:04 Labs: Abnormal Lab Results - Last 24 Hours (Table) 11/14/22 11/14/22 11/15/22 Range/Units 16:31 20:02 05:47 Glucose (74-99) mg/dL POC Glucose (mg/dL) 293 H 313 H 262 H (70-110) mg/dL 11/15/22 11/15/22 Range/Units 08:04 11:57 Glucose 211 H (74-99) mg/dL POC Glucose (mg/dL) 260 H (70-110) mg/dL
--- NOTE | 2022-11-15 12:44 | CA ---
Stress Echo Report John Tristan Age: 62 Gender: M : 1960 Exam Date: 11/15/2022 11:00 Exam Location: [facility] Ht (in): 71 Wt (lb): 180 Ordering Physician: Snow Zavala Referring Physician: [id number] Parts Coordinator: Kimmy Albright RDCS Technologist Procedure CPT: Indication: CP ICD-9 Codes: Rhythm: Patient History: CHEST PAIN, HTN, DIABETES, ELEVATED CHOLESTEROL LEVELS, FAMILY HX OF HEART DISEASE Cardiac Medications: Medications in past 24 hours: Contrast: Stress Results Protocol: Quincy Total dose(mL): Exercise Duration (min:sec): 9:[address] Depression (mm): Angina Score: Mock Score: METS: 10.5 Resting HR: 110 Resting BP: 118 / 70 Peak HR: 167 Peak BP: 202 / 70 Max Predicted HR: 158 106 % Max Predicted HR Target HR: 134 Double Product: [id number] Stress Summary: BP Response: Reason for Termination: MAX EXERTION/TARGET HR Cardiac Symptoms: NO SYMPTOMS ECG Analysis Resting ECG: Normal sinus rhythm with poor R-wave progression Stress ECG: Patient exercised on Quincy protocol for 9 minutes achieving 10 metastases 85% of predicted maximal heart rate without chest pain or diagnostic ST segment depression Arrhythmia: Echo Analysis Resting Echo: Normal left ventricular size and mild hypokinesis involving mid and basal inferior wall with preserved LV function Peak Echo Analysis: There is normal hyperdynamic response of the anterior wall lateral wall and septum inferior wall remains hypokinetic MEASUREMENTS (Male/Female) Normal Values CONCLUSIONS Good exercise tolerance Negative stress test by EKG criteria Abnormal stress echo showing evidence of prior inferior wall myocardial infarction without any evidence of ischemia Dr. Blue Braga MD (Electronically Signed) Final Date: 15 November 2022 12:43
[2022-11-15] MEDS ORDERED: NITROGLYCERIN SL TABS 0.4 MG TAB SUBLINGUAL PRN (13:48)
[2022-11-15] MEDS ORDERED: ALPRAZolam 0.5 MG TAB PO PRN (13:48)
[2022-11-15] MEDS ORDERED: ALPRAZolam 0.25 MG TAB PO PRN (13:48)
[2022-11-15 13:50] VITALS: BMI 25.4
--- NOTE | 2022-11-15 14:33 | P.PN ---
Subjective Progress Note Date: 11/15/22 Hospital Course: 63-year-old male with a history of type 2 diabetes, hypertension, dyslipidemia, presenting with left shoulder pain which was associated with nausea, discomfort across his anterior lower chest. EKG in the ED showed some nonspecific T-wave changes in inferior leads. CTA of chest did not show any acute PE or aortic dissection. Laboratory workup shows hyperglycemia, magnesium 1.3, troponin negative 3. Cardiology consulted. Patient admitted for chest pain and further workup. Echo shows good EF Subjective: Patient seen and examined at bedside. No acute events overnight. Currently chest pain-free. Still has shoulder pain. Pertinent positives and negatives as discussed above, a complete review of systems was performed and all other systems are negative. Vitals Signs Reviewed. General: nontoxic, no distress, appears at stated age Derm: warm, dry Head: atraumatic, normocephalic, symmetric Eyes: EOMI, no lid lag, anicteric sclera Mouth: no lip lesion, mucus membranes moist Cardiovascular: S1S2 reg, no murmur Lungs: CTA bilateral, no rhonchi, no rales , no accessory muscle use Abdominal: soft, nontender to palpation, no guarding, no appreciable organomegaly Ext: no gross muscle atrophy, no edema, no contractures Neuro: CN II-XI grossly intact, no focal neuro deficits Psych: Alert, oriented, appropriate affect Data Reviewed Today: Pertinent Labs: WBC 7.8, hemoglobin 17, potassium 4.8, creatinine 0.71, blood sugars range between 177-305 Imaging: No new imaging Assessment and Plan: Left shoulder sprain Chest pain likely radiating from shoulder, ACS ruled out Type 2 diabetes with hyperglycemia Hypomagnesemia - 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 with no ischemia -Tylenol and [place] PRN for pain -Discussed with cardiology, plan is for [place] tomorrow AM given evidence of infarct on stress test -Continue telemetry -On sliding scale insulin, A1c 9.5 -Currently on only 2 oral diabetic medications, given poor glycemic control, will likely benefit from adding a third agent at the time of discharge Chronic: Dyslipidemia Hypertension - DVT ppx: Subcu heparin Code status: Full Code Anticipated discharge place: Home Anticipated discharge time: Today or tomorrow Objective - Vital Signs Vital signs: Vital Signs Temp 97.8 F 11/15/22 12:00 Pulse 99 11/15/22 12:00 Resp 17 11/15/22 12:00 BP 116/78 11/15/22 12:00 Pulse Ox 95 11/15/22 12:00 FiO2 Intake & Output 11/14/22 11/15/22 11/15/22 18:59 06:59 18:59 Intake Total 225 Balance 225 Weight 82.554 kg Intake: Oral 225 Other: Voiding Method Toilet Toilet Toilet Urinal Urinal Urinal # Voids 1 - Labs CBC & Chem 7: 11/14/22 07:06 11/15/22 08:04 Labs: Abnormal Lab Results - Last 24 Hours (Table) 11/14/22 11/14/22 11/15/22 Range/Units 16:31 20:02 05:47 Glucose (74-99) mg/dL POC Glucose (mg/dL) 293 H 313 H 262 H (70-110) mg/dL 11/15/22 11/15/22 Range/Units 08:04 11:57 Glucose 211 H (74-99) mg/dL POC Glucose (mg/dL) 260 H (70-110) mg/dL
[2022-11-15 16:32] LABS: Glucose,Whole Blood 365 mg/dL (70-110)
[2022-11-15 20:13] LABS: Glucose,Whole Blood 254 mg/dL (70-110)
[2022-11-15 20:13] LABS: Glucose,Whole Blood 255 mg/dL (70-110)
[2022-11-16] MEDS: SODIUM CHLORIDE 0.9% 1,000 ML in EMPTY BAG 1 BAG IV SCH ×3 (03:28→20:25)
[2022-11-16] MEDS: HEPARIN SODIUM,PORCINE 5,000 UNIT/ML 1 ML VIAL SQ SCH ×4 (03:28→23:06)
[2022-11-16] MEDS: HYDROcodone/APAP 5-325MG 1 EACH TAB PO PRN ×2 (04:57→10:32)
[2022-11-16] MEDS ORDERED: ATORVASTATIN 80 MG TAB PO ONE (05:00)
[2022-11-16] MEDS ORDERED: ASPIRIN 325 MG TAB PO ONE (05:00)
[2022-11-16] MEDS: lisinopriL 10 MG TAB PO SCH (05:41)
[2022-11-16] MEDS: METOPROLOL TARTRATE 25 MG TAB PO SCH ×2 (05:41→20:21)
[2022-11-16] MEDS: ASPIRIN 81 MG PO SCH (05:42)
[2022-11-16] MEDS: ATORVASTATIN 40 MG TAB PO SCH (05:42)
[2022-11-16 06:15] LABS: Glucose,Whole Blood 264 mg/dL (70-110)
[2022-11-16] MEDS: INSULIN ASPART (NovoLOG) 100 UNIT/ML VIAL SQ SCH ×4 (06:40→20:21)
[2022-11-16] MEDS ORDERED: HEPARIN SODIUM,PORCINE (1 ML) 2,500 UNIT in SODIUM CHLORIDE 0.9% 250 ML IRRIGATION PRN (07:00)
[2022-11-16] MEDS ORDERED: HEPARIN SODIUM,PORCINE 10,000 UNIT in SODIUM CHLORIDE 0.9% 1,000 ML IRRIGATION PRN (07:00)
[2022-11-16] MEDS: BENZOCAINE/MENTHOL LOZENG 1 EACH LOZENGE MUCOUS MEM PRN (08:13)
[2022-11-16] MEDS ORDERED: HEPARIN SODIUM 1,000 UN/ML (10ML VL) ONE (13:09)
[2022-11-16] MEDS ORDERED: IV FLUID CONTINUATION 1,000 ML IV ONE (13:20)
[2022-11-16] MEDS ORDERED: MIDAZOLAM 2 MG/2 ML VIAL IVP ONE ×2 (13:20→13:50)
[2022-11-16] MEDS ORDERED: LIDOCAINE 1% INJ 10MG/ML (20 ML MDV) SQ ONE (13:23)
[2022-11-16] MEDS ORDERED: VERAPAMIL SYRINGE (5 MG/10 ML) INTRAARTER ONE (13:25)
[2022-11-16] MEDS: HEPARIN SODIUM 1,000 UN/ML (10ML VL) IV ONE ×2 (13:26→13:50)
[2022-11-16] MEDS ORDERED: IOPAMIDOL-370 100ML BTL INJ ONE (13:59)
[2022-11-16] MEDS ORDERED: RX INFO: IV CONTRAST WAS GIVEN 1 EACH MISC MISCELLANE PRN (14:03)
--- NOTE | 2022-11-16 14:10 | P.PCN ---
Date of Procedure: 11/16/22 Operative Findings: CARDIAC CATHETERIZATION PERFORMING PHYSICIAN: Mason Wilkins MD, RPVI PROCEDURE PERFORMED: 1. Selective right and left coronary angiogram 2. Left heart catheterization 3. iFR of the RCA 4. Ultrasound-guided access of the right radial artery INDICATION: Left arm and left shoulder discomfort in the [id number] gentleman who does have hypertension and dyslipidemia and abnormal EKG. The symptoms were concerning for angina because they were exertional related COMPLICATION: None APPROACH: Right radial artery LEVEL OF SEDATION: Moderate with a sedation length of 39 minutes PROCEDURE DESCRIPTION: After obtaining an informed consent, the patient was brought to cardiac laborer car barn. Local anesthesia was performed using lidocaine subcutaneously. The right radial artery was cannulated using Seldinger technique, the guidewire passed easily, following that we advanced a 5-Libyan sheath dilator assembly, the wire and dilator were removed and sheath was flushed. Following that, 2 mg of verapamil along with 5000 unit heparin were given. Selective right and left coronary angiogram using a 6-Libyan JR4 and JL 3.5 catheters. Following that we did left heart catheterization using 6-Libyan pigtail catheter. The procedure was completed there was no complication. SELECTIVE CORONARY ANGIOGRAM: The right coronary artery: Large caliber vessel and a dominant vessel. The RCA proximally has mild disease only and appeared to be tortuous. The mid RCA has mild disease as well. The RCA distally has intermediate lesion. We did Doppler measurements and that came in to be nonflow limiting. The RCA bifurcates into a medium size PDA branche which is subtotally occluded and PLV branch which bifurcates into 2 subbranches. The upper subbranch has a disease appeared to be in the range of 80% and the lower subbranch appears to have mild disease only. The upper subbranch has an ostial lesion Left main: Is angiographically normal. Bifurcates into an LCx and LAD The left circumflex: The proximal LCx appeared to have a lesion in the range of 70-80% but appeared to be medium size caliber vessel only. The circumflex after that appears to be free from any stenosis. The disease in the circumflex system appeared to be in OM1 which is working as a ramus intermedius The left anterior descending artery: The proximal LAD appeared to have mild disease only. The mid and distal LAD appears to have also mild disease only. HEMODYNAMICS: LVEDP was low at 1 mmHg was no gradient across aortic valve CONCLUSION: 1. Intermediate disease of the distal RCA. iFR. iFR was none ischemic an 0.94. The PDA of RCA is subtotally occluded. The PLV branch has a critical lesion at the ostium but appeared to be a medium size caliber vessel 2. Severe disease involving a medium size ramus intermedius/OM 2. Low left sided filling pressure POSTPROCEDURE MANAGEMENT: Consider medical treatment at this point. Consider PTCA and stenting of the OM1/ramus if the patient remains symptomatic
--- NOTE | 2022-11-16 14:12 | P.PN ---
Subjective Progress Note Date: 11/16/22 Hospital Course: 63-year-old male with a history of type 2 diabetes, hypertension, dyslipidemia, presenting with left shoulder pain which was associated with nausea, discomfort across his anterior lower chest. EKG in the ED showed some nonspecific T-wave changes in inferior leads. CTA of chest did not show any acute PE or aortic dissection. Laboratory workup shows hyperglycemia, magnesium 1.3, troponin negative 3. Cardiology consulted. Patient admitted for chest pain and further workup. Echo shows good EF Subjective: Patient seen and examined at bedside. No acute events overnight. Currently chest pain-free. Still has shoulder pain. Vitals Signs Reviewed. General: nontoxic, no distress, appears at stated age Derm: warm, dry Head: atraumatic, normocephalic, symmetric Eyes: EOMI, no lid lag, anicteric sclera Mouth: no lip lesion, mucus membranes moist Cardiovascular: S1S2 reg, no murmur Lungs: CTA bilateral, no rhonchi, no rales , no accessory muscle use Abdominal: soft, nontender to palpation, no guarding, no appreciable organomegaly Ext: no gross muscle atrophy, no edema, no contractures Neuro: CN II-XI grossly intact, no focal neuro deficits Psych: Alert, oriented, appropriate affect Data Reviewed Today: Pertinent Labs: WBC 7.8, hemoglobin 17, potassium 4.8, creatinine 0.71, blood sugars range between 177-305 Imaging: No new imaging Assessment and Plan: Left shoulder sprain Chest pain likely radiating from shoulder, ACS ruled out Type 2 diabetes with hyperglycemia Hypomagnesemia -Tylenol and [place] PRN for pain -Discussed with cardiology, underwent C, plan is for medical management at this time with possible intervention of OM1/Ramus if ongoing symptoms -Continue telemetry -On sliding scale insulin, A1c 9.5 -Currently on only 2 oral diabetic medications, given poor glycemic control, will likely benefit from adding a third agent at the time of discharge Chronic: Dyslipidemia Hypertension DVT ppx: Subcu heparin Code status: Full Code Anticipated discharge place: Home Objective - Vital Signs Vital signs: Vital Signs Temp 98.3 F 11/16/22 12:00 Pulse 67 11/16/22 12:00 Resp 17 11/16/22 12:00 BP 153/83 11/16/22 12:00 Pulse Ox 95 11/16/22 12:00 FiO2 Intake & Output 11/15/22 11/16/22 11/16/22 18:59 06:59 18:59 Intake Total 450 50 Balance 450 50 Weight 82.554 kg Intake: IV 50 Oral 450 Other: Voiding Method Toilet Toilet Toilet Urinal Urinal Urinal # Voids 2 1 1 # Bowel Movements 1 - Labs CBC & Chem 7: 11/14/22 07:06 11/15/22 08:04 Labs: Abnormal Lab Results - Last 24 Hours (Table) 11/15/22 11/15/22 11/15/22 Range/Units 16:24 20:08 20:10 POC Glucose (mg/dL) 365 H 254 H 255 H (70-110) mg/dL 11/16/22 Range/Units 06:13 POC Glucose (mg/dL) 264 H (70-110) mg/dL
[2022-11-16] MEDS ORDERED: SODIUM CHLORIDE 0.9% 1,000 ML IV SCH (14:15)
[2022-11-16 14:26] LABS: Glucose,Whole Blood 224 mg/dL (70-110)
[2022-11-16 16:39] LABS: Glucose,Whole Blood 224 mg/dL (70-110)
[2022-11-16 16:45] LABS: Glucose,Whole Blood 344 mg/dL (70-110)
[2022-11-16 20:10] LABS: Glucose,Whole Blood 360 mg/dL (70-110)
[2022-11-17 06:00] LABS: Glucose,Whole Blood 221 mg/dL (70-110)
[2022-11-17] MEDS: INSULIN ASPART (NovoLOG) 100 UNIT/ML VIAL SQ SCH ×2 (06:13→12:13)
[2022-11-17 08:02] LABS: Basophils % (A) 0 %; Eosinophils # (A) 0.1 k/uL (0-0.7); Eosinophils % (A) 2 %; HCT 45.9 % (39.0-53.0); HGB 15.4 gm/dL (13.0-17.5); Lymphocytes # (A) 1.7 k/uL (1.0-4.8); Lymphocytes % (A) 26 %; MCH 30.4 pg (25.0-35.0); MCHC 33.6 g/dL (31.0-37.0); MCV 90.4 fL (80.0-100.0); Mean Platelet Volume 7.5; Monocytes # (A) 0.4 k/uL (0-1.0); Monocytes % (A) 6 %; Neutrophils # (A) 4.2 k/uL (1.3-7.7); Neutrophils % (A) 63 %; Platelet Count 307 k/uL (150-450); RBC 5.08 m/uL (4.30-5.90); RDW 11.8 % (11.5-15.5); WBC 6.6 k/uL (3.8-10.6)
[2022-11-17] MEDS: HYDROcodone/APAP 5-325MG 1 EACH TAB PO PRN (08:16)
[2022-11-17] MEDS: HEPARIN SODIUM,PORCINE 5,000 UNIT/ML 1 ML VIAL SQ SCH (08:17)
[2022-11-17] MEDS: ATORVASTATIN 40 MG TAB PO SCH (08:17)
[2022-11-17] MEDS: ASPIRIN 81 MG PO SCH (08:17)
[2022-11-17 08:22] LABS: African American GFR (CKD) >90 (>60 ml/min/1.73 sqM); Anion Gap 9 mmol/L; Blood Urea Nitrogen 12 mg/dL (9-20); Carbon Dioxide 27 mmol/L (22-30); Chloride 100 mmol/L (98-107); Glucose 243 mg/dL (74-99); Magnesium 1.2 mg/dL (1.6-2.3); Non-African American GFR(CKD) >90 (>60 ml/min/1.73 sqM); Potassium 4.3 mmol/L (3.5-5.1); Sodium 136 mmol/L (137-145)
[2022-11-17] MEDS: lisinopriL 10 MG TAB PO SCH (08:24)
[2022-11-17] MEDS: METOPROLOL TARTRATE 25 MG TAB PO SCH (08:25)
[2022-11-17] MEDS ORDERED: ISOSORBIDE MONONITRATE ER 30 MG TAB.ER.24H PO SCH (09:00)
[2022-11-17] MEDS: MAGNESIUM SULFATE-D5W PMX 1 GM in DEXTROSE/WATER 1 100ML.BAG IVPB SCH ×4 (11:01→14:32)
[2022-11-17 11:34] LABS: Glucose,Whole Blood 272 mg/dL (70-110)
[2022-11-17] MEDS: SODIUM CHLORIDE 0.9% 1,000 ML in EMPTY BAG 1 BAG IV SCH (11:50)
--- NOTE | 2022-11-17 12:38 | P.PN ---
Subjective HISTORY OF PRESENT ILLNESS: 11/13/2022 Patient is a pleasant 62-year-old male with a past medical history that includes diabetes mellitus, GERD, and hypertension who presents to the hospital with complaints of back pain radiating into the chest. 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 Patient reports that this pain came and went, but over the next couple of days started to get worse. Yesterday afternoon, the patient reports the pain felt like it was coming through his chest, which concerned him and had him present to the emergency department for evaluation. In the emergency department the patient was found to have negative troponin, however his EKG was significant for ST elevation in leads II and aVF, and precordial leads v2 through v6. This was concerning for possible [place], and cardiology was consulted to evaluate. This morning the patient was evaluated the bedside. He was reporting that while lying down he is having no pain whatsoever, but states it mostly comes on when he is standing up or moving around while standing for a period of time. This pain was reproducible to palpation. The patient at this time denies chest pain, shortness of breath, heart palpitations, nausea, vomiting, diaphoresis, and near syncope. The patient states that he feels significantly better. LABS: White count 8.5, hemoglobin 17.9, platelets 447, sodium 136, potassium 4.5, BUN 24, creatinine 0.75, magnesium 1.3, troponin 13-less than 0.012, triglycerides 301, cholesterol 186, LDL 80.9, HDL 44.9 EKG: Normal sinus rhythm, with ST elevation in leads II, aVF, V2 through 6. IMAGING: Chest x-ray dated 11/12/2022 demonstrates no acute process seen, COPD. CT angiogram of the abdomen and chest dated 11/12/2022 demonstrates no evidence for aortic aneurysm or aortic dissection, no evidence for PE, some bronchial wall thickening may be chronic, it may also be seen with bronchitis or asthma, sigmoid diverticulosis without acute diverticulitis, and a few bilateral nonobstructive renal calculi measuring up to 4 mm. 11/14/2022 Patient examined this morning in the emergency room. Patient currently denies chest pain or pressure. He denies shortness of breath. He reports back pain underneath his left shoulder that he feels it is radiating to the front of his chest. Vital signs are stable. 11/15/2022 Patient examined this morning at the bedside. Patient denies chest pain or pressure. He denies shortness of breath. He continues to report some left shoulder pain. Echocardiogram completed revealing ejection fraction 55-60% with no wall motion abnormalities noted. 11/17/2022 Patient is status post cardiac catheterization revealing intermediate disease of the distal RCA. IFR was nonischemic at 0.94. The PDA of the RCA is subtotally occluded. The PLV branch has a critical lesion at the ostium but appeared to be a medium-sized caliber vessel. Severe disease involving a medium-size ramus intermedius/OM. Low left-sided filling pressures. Patient examined this morning at the bedside. Patient denies any chest pain or pressure. He denies any shortness of breath. Vital signs are stable. PHYSICAL EXAM: VITAL SIGNS: Reviewed. GENERAL: Well-developed in no acute distress. NECK: Supple. No JVD or thyromegaly LUNGS: Respirations even and unlabored. Lungs essentially clear to auscultation bilaterally. HEART: Regular rate and rhythm. S1 and S2 heard. EXTREMITIES: Normal range of motion. No clubbing or cyanosis. Peripheral pulses intact. No lower extremity edema ASSESSMENT: Left shoulder/back pain with abnormal EKG, concerning for angina, s/p cardiac cath as above Hypertension Diabetes PLAN: Continue current cardiac medications Patient is stable for discharge home today from a cardiac standpoint He is to follow up on an outpatient basis with Dr. Jaramillo Nurse practitioner note has been reviewed by physician. Signing provider agrees with the documented findings, assessment, and plan of care. Objective - Vital Signs Vital signs: Vital Signs Temp 98.0 F 11/17/22 08:00 Pulse 92 11/17/22 08:00 Resp 18 11/17/22 08:00 BP 144/89 11/17/22 08:00 Pulse Ox 95 11/17/22 08:00 FiO2 Intake & Output 11/16/22 11/17/22 11/17/22 18:59 06:59 18:59 Intake Total 230 240 Balance 230 240 Intake: IV 50 Oral 180 240 Other: Voiding Method Toilet Toilet Toilet Urinal Urinal Urinal # Voids 1 2 - Labs CBC & Chem 7: 11/17/22 07:30 11/17/22 07:30 Labs: Abnormal Lab Results - Last 24 Hours (Table) 11/16/22 11/16/22 11/16/22 Range/Units 11:33 14:24 16:44 Sodium (137-145) mmol/L Creatinine (0.66-1.25) mg/dL Glucose (74-99) mg/dL POC Glucose (mg/dL) 224 H 224 H 344 H (70-110) mg/dL Magnesium (1.6-2.3) mg/dL 11/16/22 11/17/22 11/17/22 Range/Units 20:07 05:58 07:30 Sodium 136 L (137-145) mmol/L Creatinine 0.61 L (0.66-1.25) mg/dL Glucose 243 H (74-99) mg/dL POC Glucose (mg/dL) 360 H 221 H (70-110) mg/dL Magnesium 1.2 L (1.6-2.3) mg/dL 11/17/22 Range/Units 11:26 Sodium (137-145) mmol/L Creatinine (0.66-1.25) mg/dL Glucose (74-99) mg/dL POC Glucose (mg/dL) 272 H (70-110) mg/dL Magnesium (1.6-2.3) mg/dL
[2022-11-17 12:46] VITALS: BP 112/73; PULSE 95; RESP 16; TEMP 97.7
--- NOTE | 2022-11-17 14:53 | P.DS ---
Providers Date of admission: 11/12/22 19:50 Expected date of discharge: 11/17/22 Attending physician: Monica Mcbride MD Consults: 11/12/22 19:48 Consult Physician Urgent Consulting Provider: Jorge Schmidt Consult Reason/Comments: angina Do you want consulting provider notified?: Already Contacted Primary care physician: [facility] Course: Left shoulder sprain CAD Type 2 diabetes with hyperglycemia Hypomagnesemia Dyslipidemia Hypertension Hospital Course: 63-year-old male with a history of type 2 diabetes, hypertension, dyslipidemia, presenting with left shoulder pain which was associated with nausea, discomfort across his anterior lower chest. EKG in the ED showed some nonspecific T-wave changes in inferior leads. CTA of chest did not show any acute PE or aortic dissection. Laboratory workup shows hyperglycemia, magnesium 1.3, troponin negative 3. Cardiology consulted. Patient admitted for chest pain and further workup. Echo shows good EF. Stress echo did demonstrate inferior infarct. Pt underwent LHC which showed disease in RCA, OM1. Cardiology felt patient should be medically managed with plan to intervene if patient develops symptoms of angina. Pt discharged home with medical therapy for CAD and flexeril for shoulder pain. Pt will f/u with PCP, cardiology. I spent 38 minutes coordinating this discharge, on 11/17 General: nontoxic, no distress, appears at stated age Derm: warm, dry Head: atraumatic, normocephalic, symmetric Eyes: EOMI, no lid lag, anicteric sclera Mouth: no lip lesion, mucus membranes moist Cardiovascular: S1S2 reg, no murmur Lungs: CTA bilateral, no rhonchi, no rales , no accessory muscle use Abdominal: soft, nontender to palpation, no guarding, no appreciable organomegaly Ext: no gross muscle atrophy, no edema, no contractures Neuro: CN II-XI grossly intact, no focal neuro deficits Psych: Alert, oriented, appropriate affect Patient Condition at Discharge: Good Plan - Discharge Summary New Discharge Prescriptions: New Lidocaine 5% Patch [Lidoderm 5% Patch] 1 patch TOPICAL DAILY PRN #7 patch PRN Reason: Pain Rosuvastatin [Crestor] 20 mg PO HS #30 tablet Isosorbide Mononitrate ER [Imdur] 30 mg PO DAILY #30 tab Acetaminophen Tab [Tylenol] 650 mg PO Q6HR PRN tab PRN Reason: Fever And/ Or Pain Empagliflozin [Jardiance] 25 mg PO DAILY #30 tablet Metoprolol Tartrate [Lopressor] 25 mg PO BID #60 tab Nitroglycerin Sl Tabs [Nitrostat] 0.4 mg SUBLINGUAL Q5M PRN #15 tab PRN Reason: Chest Pain Cyclobenzaprine [Flexeril] 5 mg PO TID PRN #30 tablet PRN Reason: Pain Continue lisinopriL [Zestril] 10 mg PO DAILY Glimepiride [Amaryl] 4 mg PO AC-T metFORMIN HCL [Glucophage] 1,000 mg PO BID Aspirin EC [Ecotrin Low Dose] 81 mg PO DAILY #30 tab Discontinued Rosuvastatin Calcium 5 mg PO DAILY Discharge Medication List Glimepiride [Amaryl] 4 mg PO [id number] 11/12/22 [History] Lidocaine 5% Patch [Lidoderm 5% Patch] 1 patch TOPICAL DAILY PRN #7 patch 11/12/22 [Rx] lisinopriL [Zestril] 10 mg PO DAILY 11/12/22 [History] metFORMIN HCL [Glucophage] 1,000 mg PO BID 11/12/22 [History] Acetaminophen Tab [Tylenol] 650 mg PO Q6HR PRN tab 11/17/22 [Rx] Aspirin EC [Ecotrin Low Dose] 81 mg PO DAILY #30 tab 11/17/22 [Rx] Cyclobenzaprine [Flexeril] 5 mg PO TID PRN #30 tablet 11/17/22 [Rx] Empagliflozin [Jardiance] 25 mg PO DAILY #30 tablet 11/17/22 [Rx] Isosorbide Mononitrate ER [Imdur] 30 mg PO DAILY #30 tab 11/17/22 [Rx] Metoprolol Tartrate [Lopressor] 25 mg PO BID #60 tab 11/17/22 [Rx] Nitroglycerin Sl Tabs [Nitrostat] 0.4 mg SUBLINGUAL Q5M PRN #15 tab 11/17/22 [Rx] Rosuvastatin [Crestor] 20 mg PO HS #30 tablet 11/17/22 [Rx] Follow up Appointment(s)/Referral(s): Jorge Schmidt MD [STAFF PHYSICIAN] - 1 Week David Carver MD [Primary Care Provider] - 1-2 days Jama Coe MD [STAFF PHYSICIAN] - 1-2 days Discharge/Stand Alone Forms: Work/School Release / Restrict Discharge Disposition: HOME SELF-CARE
== END 2022-11-17 15:52 | disposition home or self-care (01) ==
LOC: EC 16:43 → 6NMEDSUR 19:50 → 3SCARD 20:07
PROVIDERS: ADMIT Internal Medicine; ATTEND Internal Medicine
DX: R07.89 Other chest pain (principal); S43.402A Unspecified sprain of left shoulder joint, initial encounter; X58.XXXA Exposure to other specified factors, initial encounter; E11.65 Type 2 diabetes mellitus with hyperglycemia; I25.10 Atherosclerotic heart disease of native coronary artery without angina pectoris; K21.9 Gastro-esophageal reflux disease without esophagitis; I10 Essential (primary) hypertension; E83.42 Hypomagnesemia; E78.5 Hyperlipidemia, unspecified; I25.2 Old myocardial infarction; Z79.84 Long term (current) use of oral hypoglycemic drugs; Z79.82 Long term (current) use of aspirin; Z79.899 Other long term (current) drug therapy
CPT/HCPCS: 96361 ×2; 96365; 96372 ×4; 96366; 96374; 99291; 36415; 93005; 93306; 93351; 93571; 93458; 85379; 80061; 80053 ×2; 80048 ×2; 83735 ×4; 84484 ×2; 85025 ×3; 85610; 85730; 83036 ×2; 71046; 71275; 74175; G0378 ×6; C1887; C1769 ×2; C1894; J2250; J1644 ×2; J2001; J3475 ×3; J1885; Q9967 ×2

== ENCOUNTER 2023-05-04 10:05 | Emergency (ER) | payer BC, OTHER ==
[2023-05-04 10:21] VITALS: TEMP 97.2
--- NOTE | 2023-05-04 10:56 | ED ---
General Adult HPI - General Chief complaint: Chest Pain Stated complaint: Back pain/chest pain Time Seen by Provider: 05/04/23 10:11 Source: patient Mode of arrival: ambulatory Limitations: no limitations - History of Present Illness Initial comments: Dictation was produced using [employer] dictation software. please excuse any grammatical, word or spelling errors. 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 States he was at work when all of a sudden he started to have some midthoracic back pain. Patient states it only seems to be apparent whenever he is working in upright. Patient did have some chest pressure earlier today. States is nonradiating did not radiate to the jaw or upper extremity. Not associate with diaphoresis or nausea. Does have a history of coronary artery disease. Patient denies any chest symptoms at this time. He is not here for chest issues. The ROS documented in this emergency department record has been reviewed and confirmed by me. Those systems with pertinent positive or negative responses have been documented in the HPI. All other systems are other negative and/or noncontributory. - Related Data Home Medications Medication Instructions Recorded Confirmed Glimepiride [Amaryl] 4 mg PO DAILY 11/12/22 05/04/23 metFORMIN HCL [Glucophage] 1,000 mg PO BID 11/12/22 05/04/23 lisinopriL [Zestril] 20 mg PO BID 05/04/23 05/04/23 Previous Rx's Medication Instructions Recorded Aspirin EC [Ecotrin Low Dose] 81 mg PO DAILY #30 tab 11/17/22 Isosorbide Mononitrate ER [Imdur] 30 mg PO DAILY #30 tab 11/17/22 Metoprolol Tartrate [Lopressor] 25 mg PO BID #60 tab 11/17/22 Rosuvastatin [Crestor] 20 mg PO HS #30 tablet 11/17/22 Allergies Allergy/AdvReac Type Severity Reaction Status Date / Time No Known Allergies Allergy Verified 05/04/23 11:51 Review of Systems ROS Statement: Those systems with pertinent positive or pertinent negative responses have been documented in the HPI. ROS Other: All systems not noted in ROS Statement are negative. Past Medical History Past Medical History: Chest Pain / Angina, Diabetes Mellitus, GERD/Reflux, Hypertension, Myocardial Infarction (MA) History of Any Multi-Drug Resistant Organisms: None Reported Past Surgical History: No Surgical Hx Reported, Heart Catheterization Past Psychological History: No Psychological Hx Reported Smoking Status: Never smoker Past Alcohol Use History: None Reported Past Drug Use History: None Reported General Exam - General Exam Comments Initial Comments: PHYSICAL EXAM: General Impression: Alert and oriented x3, not in acute distress HEENT: Normocephalic atraumatic, extra-ocular movements intact, pupils equal and reactive to light bilaterally, mucous membranes moist. Cardiovascular: Heart regular rate and rhythm Chest: Able to complete full sentences, no retractions, no tachypnea Abdomen: abdomen soft, non-tender, non-distended, no organomegaly Musculoskeletal: Pulses present and equal in all extremities, no peripheral edema Motor: no focal deficits noted Neurological: CN II-XII grossly intact, no focal motor or sensory deficits noted Skin: Intact with no visualized rashes Psych: Normal affect and mood Limitations: no limitations Course Vital Signs 05/04/23 05/04/23 10:06 11:04 Temperature 97.2 F L Pulse Rate 69 76 Respiratory 16 18 Rate Blood Pressure 133/89 117/80 O2 Sat by Pulse 98 98 Oximetry EKG Findings - EKG Comments: EKG Findings:: My EKG interpretation: Ventricular rate 67, sinus rhythm,. 168, QRS 81, QTc 4 1. No FL prolongation, no QTC prolongation, no ST or T-wave changes noted. Overall, this EKG is unremarkable Medical Decision Making - Medical Decision Making Was pt. sent in by a medical professional or institution (, PA, CARDROOM ATTENDANT, urgent care, hospital, or residential...) When possible be specific @ -No Did you speak to anyone other than the patient for history (EMS, parent, family, police, friend...)? What history was obtained from this source @ -No Did you review nursing and triage notes (agree or disagree)? Why? @ -I reviewed and agree with nursing and triage notes Were old charts reviewed (outside hosp., previous admission, EMS record, old EKG, old radiological studies, urgent care reports/EKG's, residential records)? Report findings @ -No old charts were reviewed Differential Diagnosis (chest pain, altered mental status, abdominal pain women, abdominal pain men, vaginal bleeding, musculoskeletal, weakness, fever, dyspnea, syncope, headache, dizziness, GI bleed, back pain, seizure, CVA, p alpatations, mental health)? @ -Differential Back Pain: Strain, zoster, cauda equina syndrome, epidural abscess, vertebral osteomyelitis, discitis, fracture, subluxation, disc herniation, DJD, spinal stenosis, dissection, AAA, pancreatitis, peptic ulcer disease, pyelonephritis, kidney stone, this is not meant to be an all-inclusive list. EKG interpreted by me (3pts min.). See above X-rays interpreted by me (1pt min.). @ -Chest x-ray is nonacute CT interpreted by me (1pt min.). @ -None done U/S interpreted by me (1pt. min.). @ -None done What testing was considered but not performed or refused? (CT, X-rays, U/S, labs)? Why? @ -None What meds were considered but not given or refused? Why? @ -None Did you discuss the management of the patient with other professionals (professionals i.e. , PA, CARDROOM ATTENDANT, lab, RT, psych nurse, social science research assistant, spray drier, teacher, senior major gifts officer, rn case mgr)? Give summary @ -No Was smoking cessation discussed for >3mins.? @ -No Was critical care preformed (if so, how long)? @ -No Were there social determinants of health that impacted care today? How? (Homelessness, low income, unemployed, alcoholism, drug addiction, transportation, low edu. Level, literacy, decrease access to med. care, nursing home, rehab)? @ -No Was there de-escalation of care discussed even if they declined (Discuss DNR or withdrawal of care, Hospice)? DNR status @ -No What co-morbidities impacted this encounter? (DM, HTN, Smoking, COPD, CAD, Cancer, CVA, ARF, Chemo, Hep., AIDS, mental health diagnosis, sleep apnea, morbid obesity)? @ -None Was patient admitted / discharged? Hospital course, mention meds given and route, prescriptions, significant lab abnormalities, going to OR and other pertinent info. @ -62-year-old male presents emergency department chief complaint of thoracic back pain. HPI consistent with musculoskeletal cause of back pain. He states that he did have some chest pain. He does have history of coronary artery disease. States that he is not here for the chest symptoms. Vital signs upon arrival are within acceptable limits. Laboratory evaluation obtained. CBC, coag panel metabolic panel is unremarkable. Troponin is negative. Disposition options were discussed. Patient requested discharge. He was told that his chest pain is a little suspicious despite him not coming here. He states that he is not worried about his chest more so worried about his back. Patient given magnesium oxide pill. Advised follow-up with primary care doctor. Return precautions discussed Undiagnosed new problem with uncertain prognosis? @ -No Drug Therapy requiring intensive monitoring for toxicity (Heparin, Nitro, Insulin, Cardizem)? @ -No Were any procedures done? @ -No Diagnosis/symptom? Acute, or Chronic, or Acute on Chronic? Uncomplicated ( without systemic symptoms) or Complicated (systemic symptoms)? @ -Thoracic back pain Side effects of treatment? @ -No Exacerbation, Progression, or Severe Exacerbation? @ -No Poses a threat to life or bodily function? How? (Chest pain, USA, MA, pneumonia, PE, COPD, DKA, ARF, appy, cholecystitis, CVA, Diverticulitis, Homicidal, Suicidal, threat to staff... and all critical care pts) @ -No - Lab Data Result diagrams: 05/04/23 10:55 05/04/23 10:55 Lab Results 05/04/23 05/04/23 05/04/23 Range/Units 10:55 10:55 10:55 WBC 7.3 (3.8-10.6) k/uL RBC 5.45 (4.30-5.90) m/uL Hgb 16.6 (13.0-17.5) gm/dL Hct 48.2 (39.0-53.0) % MCV 88.3 (80.0-100.0) fL MCH 30.4 (25.0-35.0) pg MCHC 34.5 (31.0-37.0) g/dL RDW 12.3 (11.5-15.5) % Plt Count 332 (150-450) k/uL MPV 7.7 Neutrophils % 60 % Lymphocytes % 28 % Monocytes % 7 % Eosinophils % 2 % Basophils % 0 % Neutrophils # 4.4 (1.3-7.7) k/uL Lymphocytes # 2.1 (1.0-4.8) k/uL Monocytes # 0.5 (0-1.0) k/uL Eosinophils # 0.1 (0-0.7) k/uL Basophils # 0.0 (0-0.2) k/uL PT 10.9 (10.0-12.5) sec INR 1.0 (<1.2) APTT 24.1 (22.0-30.0) sec Sodium 137 (137-145) mmol/L Potassium 4.0 (3.5-5.1) mmol/L Chloride 102 (98-107) mmol/L Carbon Dioxide 26 (22-30) mmol/L Anion Gap 9 mmol/L BUN 31 H (9-20) mg/dL Creatinine 1.03 (0.66-1.25) mg/dL Est GFR (CKD-EPI)AfAm 90 (>60 ml/min/1.73 sqM) Est GFR (CKD-EPI)NonAf 78 (>60 ml/min/1.73 sqM) Glucose 187 H (74-99) mg/dL Calcium 9.2 (8.4-10.2) mg/dL Magnesium 1.5 L (1.6-2.3) mg/dL Total Bilirubin 1.1 (0.2-1.3) mg/dL AST 26 (17-59) U/L ALT 22 (4-49) U/L Alkaline Phosphatase 63 (38-126) U/L Troponin I (0.000-0.034) ng/mL Total Protein 6.9 (6.3-8.2) g/dL Albumin 4.2 (3.5-5.0) g/dL 05/04/23 Range/Units 10:55 WBC (3.8-10.6) k/uL RBC (4.30-5.90) m/uL Hgb (13.0-17.5) gm/dL Hct (39.0-53.0) % MCV (80.0-100.0) fL MCH (25.0-35.0) pg MCHC (31.0-37.0) g/dL RDW (11.5-15.5) % Plt Count (150-450) k/uL MPV Neutrophils % % Lymphocytes % % Monocytes % % Eosinophils % % Basophils % % Neutrophils # (1.3-7.7) k/uL Lymphocytes # (1.0-4.8) k/uL Monocytes # (0-1.0) k/uL Eosinophils # (0-0.7) k/uL Basophils # (0-0.2) k/uL PT (10.0-12.5) sec INR (<1.2) APTT (22.0-30.0) sec Sodium (137-145) mmol/L Potassium (3.5-5.1) mmol/L Chloride (98-107) mmol/L Carbon Dioxide (22-30) mmol/L Anion Gap mmol/L BUN (9-20) mg/dL Creatinine (0.66-1.25) mg/dL Est GFR (CKD-EPI)AfAm (>60 ml/min/1.73 sqM) Est GFR (CKD-EPI)NonAf (>60 ml/min/1.73 sqM) Glucose (74-99) mg/dL Calcium (8.4-10.2) mg/dL Magnesium (1.6-2.3) mg/dL Total Bilirubin (0.2-1.3) mg/dL AST (17-59) U/L ALT (4-49) U/L Alkaline Phosphatase (38-126) U/L Troponin I <0.012 (0.000-0.034) ng/mL Total Protein (6.3-8.2) g/dL Albumin (3.5-5.0) g/dL Disposition Clinical Impression: Back pain Disposition: HOME SELF-CARE Condition: Good Instructions (If sedation given, give patient instructions): Back Pain (ED) Is patient prescribed a controlled substance at d/c from ED?: No Referrals: David Carver MD [Primary Care Provider] - 1-2 days Time of Disposition: 12:16
[2023-05-04 11:12] LABS: Basophils % (A) 0 %; Eosinophils # (A) 0.1 k/uL (0-0.7); Eosinophils % (A) 2 %; HCT 48.2 % (39.0-53.0); HGB 16.6 gm/dL (13.0-17.5); Lymphocytes # (A) 2.1 k/uL (1.0-4.8); Lymphocytes % (A) 28 %; MCH 30.4 pg (25.0-35.0); MCHC 34.5 g/dL (31.0-37.0); MCV 88.3 fL (80.0-100.0); Mean Platelet Volume 7.7; Monocytes # (A) 0.5 k/uL (0-1.0); Monocytes % (A) 7 %; Neutrophils # (A) 4.4 k/uL (1.3-7.7); Neutrophils % (A) 60 %; Platelet Count 332 k/uL (150-450); RBC 5.45 m/uL (4.30-5.90); RDW 12.3 % (11.5-15.5); WBC 7.3 k/uL (3.8-10.6)
[2023-05-04 11:21] LABS: Partial Thromboplastin Time 24.1 sec (22.0-30.0); Prothrombin Time 10.9 sec (10.0-12.5)
[2023-05-04 11:32] LABS: ALT 22 U/L (4-49); AST 26 U/L (17-59); African American GFR (CKD) 90 (>60 ml/min/1.73 sqM); Albumin 4.2 g/dL (3.5-5.0); Alkaline Phosphatase 63 U/L (38-126); Anion Gap 9 mmol/L; Blood Urea Nitrogen 31 mg/dL (9-20); Calcium 9.2 mg/dL (8.4-10.2); Carbon Dioxide 26 mmol/L (22-30); Chloride 102 mmol/L (98-107); Glucose 187 mg/dL (74-99); Magnesium 1.5 mg/dL (1.6-2.3); Non-African American GFR(CKD) 78 (>60 ml/min/1.73 sqM); Sodium 137 mmol/L (137-145); Total Bilirubin 1.1 mg/dL (0.2-1.3); Total Protein 6.9 g/dL (6.3-8.2)
--- NOTE | 2023-05-04 11:59 | XR ---
EXAMINATION TYPE: XR chest 2V DATE OF EXAM: 05/04/2023 11:14 AM CLINICAL INDICATION:Male, 62 years old with history of Chest Pain; [facility] COMPARISON: Chest radiographs from 11/12/2022 TECHNIQUE: XR chest 2V Frontal and lateral views of the chest. FINDINGS: Lungs/Pleura: There is no evidence of pleural effusion, focal consolidation, or pneumothorax. Pulmonary vascularity: Unremarkable. Heart/mediastinum: Cardiomediastinal silhouette is unremarkable. Musculoskeletal: No acute osseous pathology. IMPRESSION: 1. No acute cardiopulmonary disease process. 2. COPD changes.
[2023-05-04] MEDS ORDERED: MAGNESIUM OXIDE 400 MG TAB PO STA (12:13)
[2023-05-04 12:43] VITALS: BP 110/78; PULSE 71; RESP 16
== END 2023-05-04 12:31 | disposition home or self-care (01) ==
LOC: EC 10:05
DX: M54.6 Pain in thoracic spine (principal)
CPT/HCPCS: 36415; 71046; 80053; 83735; 84484; 85025; 85610; 85730; 93005; 99285

== ENCOUNTER 2023-07-08 01:01 | Emergency (ER) | payer BC ==
[2023-07-08 02:13] VITALS: RESP 18
--- NOTE | 2023-07-08 02:51 | ED ---
General Adult HPI - General Chief complaint: Neck Pain/Injury Stated complaint: Back pain Time Seen by Provider: 07/08/23 01:37 Source: patient Mode of arrival: ambulatory Limitations: no limitations - History of Present Illness Initial comments: 3-year-old male with a past medical history significant for prior kidney stones presenting to the ED with complaints of left flank/back pain. Patient states onset 3 days ago. Patient states that pain is actually improved with certain movements and positions however does worsen when laying flat. Patient does note a history of kidney stones and reports pain does feel similar to this. 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 Denies urinary symptoms. Denies changes in bowel habits. Denies fever or chills. No chest pain or shortness of breath. No other complaints at this time. - Related Data Home Medications Medication Instructions Recorded Confirmed Glimepiride [Amaryl] 4 mg PO DAILY 11/12/22 05/04/23 metFORMIN HCL [Glucophage] 1,000 mg PO BID 11/12/22 05/04/23 lisinopriL [Zestril] 20 mg PO BID 05/04/23 05/04/23 Previous Rx's Medication Instructions Recorded Aspirin EC [Ecotrin Low Dose] 81 mg PO DAILY #30 tab 11/17/22 Isosorbide Mononitrate ER [Imdur] 30 mg PO DAILY #30 tab 11/17/22 Metoprolol Tartrate [Lopressor] 25 mg PO BID #60 tab 11/17/22 Rosuvastatin [Crestor] 20 mg PO HS #30 tablet 11/17/22 Allergies Allergy/AdvReac Type Severity Reaction Status Date / Time No Known Allergies Allergy Verified 05/04/23 11:51 Review of Systems ROS Statement: Those systems with pertinent positive or pertinent negative responses have been documented in the HPI. ROS Other: All systems not noted in ROS Statement are negative. Past Medical History Past Medical History: Chest Pain / Angina, Diabetes Mellitus, GERD/Reflux, Hypertension, Myocardial Infarction (NM) History of Any Multi-Drug Resistant Organisms: None Reported Past Surgical History: No Surgical Hx Reported, Heart Catheterization Past Psychological History: No Psychological Hx Reported Smoking Status: Never smoker Past Alcohol Use History: None Reported Past Drug Use History: None Reported General Exam Limitations: no limitations General appearance: alert, in no apparent distress Eye exam: Present: normal appearance Neck exam: Present: normal inspection Respiratory exam: Present: normal lung sounds bilaterally Cardiovascular Exam: Present: regular rate, normal rhythm GI/Abdominal exam: Present: soft, normal bowel sounds, other (Left CVA TTP ). Absent: distended, tenderness, guarding, rebound, rigid Neurological exam: Present: alert, oriented X3 Skin exam: Present: warm, dry Course Vital Signs 07/08/23 01:18 Temperature 98 F Pulse Rate 75 Respiratory 18 Rate Blood Pressure 160/93 O2 Sat by Pulse 98 Oximetry Medical Decision Making - Medical Decision Making Was pt. sent in by a medical professional or institution (, PA, HEATING AND REFRIGERATION INSPECTOR, urgent care, hospital, or skilled nursing...) When possible be specific @ -No Did you speak to anyone other than the patient for history (EMS, parent, family, police, friend...)? What history was obtained from this source @ -No Did you review nursing and triage notes (agree or disagree)? Why? @ -I reviewed and agree with nursing and triage notes Were old charts reviewed (outside hosp., previous admission, EMS record, old EKG, old radiological studies, urgent care reports/EKG's, skilled nursing records)? Report findings @ -No old charts were reviewed Differential Diagnosis (chest pain, altered mental status, abdominal pain women, abdominal pain men, vaginal bleeding, weakness, fever, dyspnea, syncope, headache, dizziness, GI bleed, back pain, seizure, CVA, palpatations, mental health, musculoskeletal)? @ -Differential Abdominal Pain Men: Appendicitis, cholecystitis, diverticulosis, ischemic bowel, pancreatitis, hepatitis, UTI, gastroenteritis, AAA, incarcerated hernia, bowel obstruction, constipation, inflammatory bowel, hepatitis, peptic ulcer disease, splenic infarction, perforated viscus, testicular torsion, this is not meant to be an a ll-inclusive list EKG interpreted by me (3pts min.). @ -None X-rays interpreted by me (1pt min.). @ -None done CT interpreted by me (1pt min.). @ -CT abdomen pelvis inter by me. CT shows no evidence of obstructive stone. Does have finding of left renal cyst. No evidence of acute finding however. U/S interpreted by me (1pt. min.). @ -None done What testing was considered but not performed or refused? (CT, X-rays, U/S, labs)? Why? @ -None What meds were considered but not given or refused? Why? @ -None Did you discuss the management of the patient with other professionals (professionals i.e. , PA, HEATING AND REFRIGERATION INSPECTOR, lab, RT, psych nurse, social and human services assistant, etl consultant, teacher, railway patrol officer, case hardener)? Give summary @ -No Was smoking cessation discussed for >3mins.? @ -No Was critical care preformed (if so, how long)? @ -No Were there social determinants of health that impacted care today? How? (Homelessness, low income, unemployed, alcoholism, drug addiction, transportation, low edu. Level, literacy, decrease access to med. care, long-term, rehab)? @ -No Was there de-escalation of care discussed even if they declined (Discuss DNR or withdrawal of care, Hospice)? DNR status @ -No What co-morbidities impacted this encounter? (DM, HTN, Smoking, COPD, CAD, Cancer, CVA, ARF, Chemo, Hep., AIDS, mental health diagnosis, sleep apnea, morbid obesity)? @ -None Was patient admitted / discharged? Hospital course, mention meds given and route, prescriptions, significant lab abnormalities, going to OR and other pertinent info. @ -Discharge 63-year-old male presenting to the ED with complaints of left back/flank pain. CT abdomen pelvis revealed no evidence of acute process however does show evidence of left renal cyst. Laboratory studies reviewed and are largely unremarkable. Patient reported improvement of pain after being provided an algesics here. Symptoms likely musculoskeletal in nature. Discharged home in stable condition with referral to see urology. Discussed return precautions with patient who verbalized agreement. Undiagnosed new problem with uncertain prognosis? @ -No Drug Therapy requiring intensive monitoring for toxicity (Heparin, Nitro, Insulin, Cardizem)? @ -No Were any procedures done? @ -No Diagnosis/symptom? @ -Left-sided back pain Acute, or Chronic, or Acute on Chronic? @ -Acute Uncomplicated (without systemic symptoms) or Complicated (systemic symptoms)? @ -Uncomplicated Side effects of treatment? @ -No Exacerbation, Progression, or Severe Exacerbation? @ -No Poses a threat to life or bodily function? How? (Chest pain, USA, NM, pneumonia, PE, COPD, DKA, ARF, appy, cholecystitis, CVA, Diverticulitis, Homicidal, Suicidal, threat to staff... and all critical care pts) @ -No - Lab Data Result diagrams: 07/08/23 02:59 07/08/23 02:59 Lab Results 07/08/23 07/08/23 07/08/23 Range/Units 02:51 02:59 02:59 WBC 6.9 (3.8-10.6) k/uL RBC 5.19 (4.30-5.90) m/uL Hgb 15.7 (13.0-17.5) gm/dL Hct 47.6 (39.0-53.0) % MCV 91.7 (80.0-100.0) fL MCH 30.2 (25.0-35.0) pg MCHC 32.9 (31.0-37.0) g/dL RDW 12.7 (11.5-15.5) % Plt Count 262 (150-450) k/uL MPV 7.8 Neutrophils % 49 % Lymphocytes % 38 % Monocytes % 8 % Eosinophils % 2 % Basophils % 1 % Neutrophils # 3.4 (1.3-7.7) k/uL Lymphocytes # 2.6 (1.0-4.8) k/uL Monocytes # 0.5 (0-1.0) k/uL Eosinophils # 0.1 (0-0.7) k/uL Basophils # 0.1 (0-0.2) k/uL Sodium 139 (137-145) mmol/L Potassium 4.5 (3.5-5.1) mmol/L Chloride 104 (98-107) mmol/L Carbon Dioxide 30 (22-30) mmol/L Anion Gap 5 mmol/L BUN 25 H (9-20) mg/dL Creatinine 0.76 (0.66-1.25) mg/dL Est GFR (CKD-EPI)AfAm >90 (>60 ml/min/1.73 sqM) Est GFR (CKD-EPI)NonAf >90 (>60 ml/min/1.73 sqM) Glucose 144 H (74-99) mg/dL Calcium 9.5 (8.4-10.2) mg/dL Total Bilirubin 0.9 (0.2-1.3) mg/dL AST 23 (17-59) U/L ALT 23 (4-49) U/L Alkaline Phosphatase 56 (38-126) U/L Total Protein 7.0 (6.3-8.2) g/dL Albumin 4.3 (3.5-5.0) g/dL Urine Color Yellow Urine Appearance Clear (Clear) Urine pH 5.5 (5.0-8.0) Ur Specific [place] 1.030 (1.001-1.035) Urine Protein Trace H (Negative) Urine Glucose (UA) Negative (Negative) Urine Ketones Negative (Negative) Urine Blood Negative (Negative) Urine Nitrite Negative (Negative) Urine Bilirubin Negative (Negative) Urine Urobilinogen <2.0 (<2.0) mg/dL Ur Leukocyte Esterase Negative (Negative) Disposition Clinical Impression: Back pain Disposition: HOME SELF-CARE Condition: Good Additional Instructions: Please return to the Emergency Department if symptoms worsen or any other concerns. Please follow-up with your PCP and urology. Is patient prescribed a controlled substance at d/c from ED?: No Referrals: David Carver MD [Primary Care Provider] - 1-2 days Jose Manuel Knapp MD [STAFF PHYSICIAN] - 1-2 days Time of Disposition: 05:14
[2023-07-08 03:06] LABS: Appearance,Urine Clear (Clear); Bilirubin,Urine Negative (Negative); Blood,Urine Negative (Negative); Color,Urine Yellow; Glucose,Urine (UA) Negative (Negative); Ketones,Urine Negative (Negative); Leukocyte Esterase,Urine Negative (Negative); Nitrite,Urine Negative (Negative); PH, Urine 5.5 (5.0-8.0); Protein,Urine Trace (Negative); Urobilinogen,Urine <2.0 mg/dL (<2.0)
[2023-07-08 03:30] LABS: ALT 23 U/L (4-49); AST 23 U/L (17-59); African American GFR (CKD) >90 (>60 ml/min/1.73 sqM); Albumin 4.3 g/dL (3.5-5.0); Alkaline Phosphatase 56 U/L (38-126); Anion Gap 5 mmol/L; Blood Urea Nitrogen 25 mg/dL (9-20); Calcium 9.5 mg/dL (8.4-10.2); Carbon Dioxide 30 mmol/L (22-30); Chloride 104 mmol/L (98-107); Glucose 144 mg/dL (74-99); Non-African American GFR(CKD) >90 (>60 ml/min/1.73 sqM); Potassium 4.5 mmol/L (3.5-5.1); Sodium 139 mmol/L (137-145); Total Bilirubin 0.9 mg/dL (0.2-1.3)
[2023-07-08 03:33] LABS: Basophils # (A) 0.1 k/uL (0-0.2); Basophils % (A) 1 %; Eosinophils # (A) 0.1 k/uL (0-0.7); Eosinophils % (A) 2 %; HCT 47.6 % (39.0-53.0); HGB 15.7 gm/dL (13.0-17.5); Lymphocytes # (A) 2.6 k/uL (1.0-4.8); Lymphocytes % (A) 38 %; MCH 30.2 pg (25.0-35.0); MCHC 32.9 g/dL (31.0-37.0); MCV 91.7 fL (80.0-100.0); Mean Platelet Volume 7.8; Monocytes # (A) 0.5 k/uL (0-1.0); Monocytes % (A) 8 %; Neutrophils # (A) 3.4 k/uL (1.3-7.7); Neutrophils % (A) 49 %; Platelet Count 262 k/uL (150-450); RBC 5.19 m/uL (4.30-5.90); RDW 12.7 % (11.5-15.5); WBC 6.9 k/uL (3.8-10.6)
[2023-07-08] MEDS: KETOROLAC 15 MG/ML 1 ML VIAL IVP STA (04:33)
[2023-07-08] MEDS: ACETAMINOPHEN TAB 500 MG TAB PO STA (04:33)
[2023-07-08 05:49] VITALS: BP 162/91; PULSE 58; TEMP 98.2
--- NOTE | 2023-07-08 07:46 | CT ---
EXAMINATION TYPE: CT abdomen pelvis wo con DATE OF EXAM: 07/08/2023 COMPARISON: None INDICATION: patient comes in with lower back pain. Denies injury. left flank pain r/o stone DLP: 586.5 mGycm, Automated exposure control for dose reduction was used. CONTRAST: 0 mL of . Study performed without Oral Contrast TECHNIQUE: Axial images were obtained from above the diaphragm to the pubic rami in the axial plane a t 5 mm thick sections. Reconstructed images are reviewed on the computer in the coronal plane. FINDINGS: Limited CT sections are obtained the lung bases. The lung bases are clear. CT ABDOMEN: Liver: Normal Spleen: Normal Pancreas: Normal Adrenal glands: The adrenal glands are normal. Gallbladder: Normal Kidneys: No masses are evident. No hydronephrosis is present. There is a 1.8 cm cyst anterior upper pole left kidney. Superior medial pole left renal cyst there is a 2.8 cm anterior renal cyst. There are nonobstructing punctate renal stones on the right including series 201 image 63, image 60 posteri or measuring 0.3 each. And a 0.5 cm in the anterior upper pole right kidney image 55 Aorta: Vascular calcification is within the aorta. Inferior vena cava: Normal. CT PELVIS: Loops of bowel within the abdomen and pelvis are normal. Multiple diverticuli without acute diverti culitis are within the sigmoid colon. Study is without oral contrast limiting bowel evaluation. Appendix: Normal as visualized. Urinary bladder: Decompressed with limited evaluation Genitourinary structures: Prostate is prominent Osseous structures: No suspicious lytic or sclerotic lesions. Facet degenerative changes are present. IMPRESSION: 1. Nonobstructing renal stones. 2. Bilateral renal cysts.
== END 2023-07-08 05:30 | disposition home or self-care (01) ==
LOC: EC 01:01
DX: M54.9 Dorsalgia, unspecified (principal)
CPT/HCPCS: 36415; 74176; 80053; 81003; 85025; 99284